=== PATIENT | female | born 1970 | race Caucasian/White ===

== ENCOUNTER → 2018-05-24 09:35 | Outpatient (CLI) | payer OTHER, SELFPAY | PROVIDERS: Family Provider Family Medicine Geriatric Medicine; PCP Family Medicine Geriatric Medicine; Referring Provider Family Medicine Geriatric Medicine; Visit Provider Family Medicine Geriatric Medicine | DX: R68.83 Chills (without fever) (principal) | CPT/HCPCS: 87633 ==

== ENCOUNTER 2018-07-07 21:47 | Emergency (ER) | payer OTHER, SELFPAY ==
[2018-07-07 21:48] VITALS: BP 188/107; PULSE 87; RESP 14; TEMP 36.8; O2SAT 97; BMI 33.8
[2018-07-07 22:18] VITALS: BP 195/104
[2018-07-07] MEDS: 0.9% Normal Saline 1,000 ML 999 ML IV (22:35)
[2018-07-07] MEDS: Ondansetron 4 MG/2 ML Vial IV (22:36)
[2018-07-07] MEDS: Ketorolac 30 MG/ML Syringe IV (22:36)
[2018-07-07 22:47] LABS: Absolute Lymphocyte Count 0.66 X10^3/ul (0.83-4.51); Absolute Neutrophil Count 3.7 X10^3/uL (2.0-7.7); Basophil# 0.01 X10^3/uL; Basophil% 0.2 % (0-1); Eosinophil# 0.01 X10^3/uL; Eosinophils% 0.2 % (0-5); Hematocrit 39.2 % (37-47); Hemoglobin 13.2 g/dl (12.0-15.0); Lymphocyte # 0.66 X10^3/ul (4.0); Lymphocyte % 13.5 % (19-41); Mean Corp Hgb Conc 33.7 g/gl (32-36); Mean Corpuscular Hgb 31.5 pg (27.0-32.0); Mean Corpuscular Volume 93.6 fL (81-99); Mean Platelet Vol. 10.4 fl (6.2-12.0); Monocyte# 0.53 X10^3/uL; Monocyte% 10.8 % (0-10); Neutrophil # 3.69 X10^3/uL (2.7-7.7); Neutrophil % 75.3 % (47-70); Platelet Count 155 K/mm3 (150-450); RBC Distribution Width CV 12.7 % (11.6-14.6); RBC Distribution Width SD 42.5 fl (35.1-43.9); Red Blood Count 4.19 M/mm3 (4.2-5.4); White Blood Count 4.9 K/mm3 (4.4-11.0)
[2018-07-07 22:48] LABS: POSITIVE COUNT NO; POSITIVE DIFFERENTIAL NO; POSITIVE MORPHOLOGY NO
--- NOTE | 2018-07-07 22:50 | ED.VISSUMM ---
- ER Visit Summary Date of Service: 07/07/18 Chief Complaint: Cough, vomiting, sinus pressure History of Present Illness: The patient is a 48 F who came home from work last night with a cough and body aches. She went straight to bed. She started vomiting around 10 PM last night. She continued to feel ill today and has noted significant sinus pressure. She reports a fever up to 102. She last took Tylenol about 5 hours prior to arrival. Past history significant for borderline hypertension. She has had prior cholecystectomy. Physical Examination: Blood pressure is 188/107, temperature 98.3, heart rate 87, respiratory rate 14, pulse ox 97% on room air. Patient is lying in a darkened room. She is in no acute distress. Head neck examination reveals TMs to be clear bilaterally. Posterior pharynx is normal. She has mild bilateral anterior cervical lymphadenopathy. Heart is regular rate and rhythm. Lungs are clear. Abdomen is soft and nontender. Test Results: Two-view chest x-ray shows no focal infiltrate. CBC was normal white count was 75% neutrophils. Chemistry studies significant for slightly low potassium at 3.2. Influenza swab is positive for flu A. Emergency Department Course and Treatment: Patient was given p.o. Sudafed, IV Toradol, Zofran, and fluids. Test results were discussed with patient and at bedside. She is given a dose of Tamiflu. Blood pressure did remain elevated throughout her ED stay. She is given a dose of labetalol and blood pressure is improved at this time. She is advised to monitor this at home and follow-up with her primary care physician. This may be secondary to her illness, but certainly needs close follow-up. Treatment Plan: [] Disposition: Discharge Impression: 1. Influenza A 2. Hypertension This note was generated with [employer] software. It may contain incorrect words, spelling, and punctuation that were not noted in review of the chart prior to signing ED Disposition - Plan for ED Patient: Chief Complaint: Cold Sx Referrals: Carlos Gayle Chi, MD [Primary Care Provider] -
--- NOTE | 2018-07-07 22:59 | ED.RN ---
lab called with positive lab results. Positive Flu A. Dr. Keenan made aware. no new orders at this time
[2018-07-07 23:00] LABS: Anion Gap 7 (5-15); BUN 11 mg/dL (7-18); BUN/Creat Ratio 12.1 RATIO (10-20); Calcium,Total 8.2 mg/dL (8.5-10.1); Chloride 107 mmol/L (98-107); Creatinine, Serum 0.91 mg/dL (0.55-1.02); EST Glomerular Filtration Rate 70 mL/min (>60); Est Glom Filt Rate - Afr Amer 84 mL/min (>60); Estimated Creatinine Clearance 59.15 ml/min; Glucose 111 mg/dL (74-106); Potassium 3.2 mmol/L (3.5-5.1); Sodium Level 140 mmol/L (136-145)
--- NOTE | 2018-07-07 23:00 | RAD_ITS ---
STUDY: X-RAY CHEST REASON FOR EXAM: Female, 48 years old. Cough, fever TECHNIQUE: Frontal and lateral views COMPARISON: February 16, 2016 FINDINGS: The lungs are clear and expanded. There is no demonstrated pleural abnormality. Normal size heart. Normal mediastinum and dashawn. Normal visualized pulmonary arteries. Normal visualized aortic arch and descending thoracic aorta. Normal visualized thoracic spine. Normal visualized ribs, clavicles, and shoulders. There is no demonstrated abnormality of the visualized soft tissue structures of the upper abdomen. RAD/Chest PA and Lateral IMPRESSION: Normal x-ray examination of the chest. Electronically Signed: Fredy See DO at 23:39 EST Tel [phone], Service support ,
[2018-07-07 23:22] VITALS: BP 198/98
[2018-07-07] MEDS: Oseltamivir Phosphate 75 MG Capsule PO (23:38)
[2018-07-07 23:46] VITALS: BP 160/82
--- NOTE | 2018-07-07 23:52 | ED.DEP ---
ED Disposition - Plan for ED Patient: Disposition: Home or Assisted Living Chief Complaint: Cold Sx Instructions: ED Flu Prescriptions: Oseltamivir Phosphate [Tamiflu] 75 mg PO BID #10 capsule Referrals: Carlos Gayle Chi, MD [Primary Care Provider] - 1 Week
[2018-07-08 00:01] VITALS: BP 160/82
== END 2018-07-08 00:02 | disposition home or self-care (01) ==
PROVIDERS: Emergency Provider Emergency Medicine; Family Provider Family Medicine Geriatric Medicine; PCP Family Medicine Geriatric Medicine
DX: J09.X2 Influenza due to identified novel influenza A virus with other respiratory manifestations (principal); I10 Essential (primary) hypertension; Z90.49 Acquired absence of other specified parts of digestive tract; Z87.891 Personal history of nicotine dependence
CPT/HCPCS: 71046; 80048; 85025; 87804; 96361; 96374; 96375; 99283; J7030; A4216; J2405

== ENCOUNTER → 2018-07-11 11:23 | Outpatient (CLI) | payer OTHER, SELFPAY ==
[2018-07-07 21:48] VITALS: BMI 33.8
--- NOTE | 2018-07-11 11:35 | RAD_ITS ---
STUDY: X-RAY CHEST REASON FOR EXAM: Female, 48 years old. Bronchitis TECHNIQUE: PA and lateral views of the chest. COMPARISON: 07/07/2018 FINDINGS: The lungs are clear and expanded. There is no demonstrated pleural abnormality. Normal size heart. Normal mediastinum and dashawn. Normal visualized pulmonary arteries. Normal visualized aortic arch and descending thoracic aorta. Normal visualized thoracic spine. Normal visualized ribs, clavicles, and shoulders. There is no demonstrated abnormality of the visualized soft tissue structures of the upper abdomen. RAD/Chest PA and Lateral IMPRESSION: No airspace consolidation. Stable exam. Electronically Signed: John Dennis MD at 13:56 EST , Service support ,
== END ==
PROVIDERS: Family Provider Family Medicine Geriatric Medicine; PCP Family Medicine Geriatric Medicine; Referring Provider Family Medicine Geriatric Medicine; Visit Provider Family Medicine Geriatric Medicine
DX: J40 Bronchitis, not specified as acute or chronic (principal)
CPT/HCPCS: 71046

== ENCOUNTER → 2018-08-30 08:52 | Outpatient (CLI) | payer OTHER, SELFPAY ==
[2018-08-30 09:21] LABS: Absolute Lymphocyte Count 1.92 X10^3/ul (0.83-4.51); Absolute Neutrophil Count 3.3 X10^3/uL (2.0-7.7); Basophil# 0.02 X10^3/uL; Basophil% 0.3 % (0-1); Eosinophils% 1.7 % (0-5); Hematocrit 41.9 % (37-47); Hemoglobin 14.1 g/dl (12.0-15.0); Lymphocyte # 1.92 X10^3/ul (4.0); Mean Corp Hgb Conc 33.7 g/gl (32-36); Mean Corpuscular Hgb 31.4 pg (27.0-32.0); Mean Corpuscular Volume 93.3 fL (81-99); Monocyte# 0.61 X10^3/uL; Monocyte% 10.2 % (0-10); Neutrophil # 3.33 X10^3/uL (2.7-7.7); Neutrophil % 55.5 % (47-70); POSITIVE COUNT NO; POSITIVE DIFFERENTIAL NO; POSITIVE MORPHOLOGY NO; Platelet Count 225 K/mm3 (150-450); RBC Distribution Width CV 13.2 % (11.6-14.6); RBC Distribution Width SD 44.9 fl (35.1-43.9); Red Blood Count 4.49 M/mm3 (4.2-5.4)
[2018-08-30 09:51] LABS: ALB/GLOB Ratio 1.1 RATIO (0.9-2.4); AST(SGOT) 17 U/L (15-37); Alanine Aminotransfer ALT/SGPT 30 U/L (13-56); Albumin, Serum 3.8 g/dL (3.2-5.0); Alkaline Phosphatase 118 U/L (45-117); Anion Gap 9 (5-15); BUN 15 mg/dL (7-18); BUN/Creat Ratio 14.4 RATIO (10-20); Calcium,Total 8.3 mg/dL (8.5-10.1); Chloride 104 mmol/L (98-107); Creatinine, Serum 1.04 mg/dL (0.55-1.02); EST Glomerular Filtration Rate 60 mL/min (>60); Est Glom Filt Rate - Afr Amer 72 mL/min (>60); Globulin 3.5 g/dL (2.2-4.2); Glucose 98 mg/dL (74-106); Magnesium 2.5 mg/dL (1.6-2.6); Phosphorus 3.4 mg/dL (2.5-4.9); Potassium 3.4 mmol/L (3.5-5.1); Protein, Total 7.3 g/dL (6.4-8.2); Sodium Level 142 mmol/L (136-145); Thyroid Stim Hormone (TSH) 6.52 uIU/mL (0.358-3.74)
== END ==
PROVIDERS: Family Provider Family Medicine Geriatric Medicine; PCP Family Medicine Geriatric Medicine; Referring Provider Family Medicine Geriatric Medicine; Visit Provider Family Medicine Geriatric Medicine
DX: I10 Essential (primary) hypertension (principal); R25.2 Cramp and spasm
CPT/HCPCS: 36415; 80053; 83735; 84100; 84443; 85025

== ENCOUNTER → 2018-09-08 13:16 | Outpatient (CLI) | payer OTHER, SELFPAY ==
[2018-09-08 14:06] LABS: Anion Gap 9 (5-15); BUN 15 mg/dL (7-18); BUN/Creat Ratio 13.8 RATIO (10-20); Calcium,Total 8.6 mg/dL (8.5-10.1); Chloride 105 mmol/L (98-107); Creatinine, Serum 1.09 mg/dL (0.55-1.02); EST Glomerular Filtration Rate 57 mL/min (>60); Est Glom Filt Rate - Afr Amer 69 mL/min (>60); Glucose 83 mg/dL (74-106); Potassium 3.7 mmol/L (3.5-5.1); Sodium Level 143 mmol/L (136-145)
== END ==
PROVIDERS: Family Provider Family Medicine Geriatric Medicine; PCP Family Medicine Geriatric Medicine; Referring Provider Family Medicine Geriatric Medicine; Visit Provider Family Medicine Geriatric Medicine
DX: E87.6 Hypokalemia (principal)
CPT/HCPCS: 36415; 80048

== ENCOUNTER → 2018-12-09 08:18 | Outpatient (CLI) | payer OTHER, SELFPAY ==
[2018-12-08 18:00] VITALS: BMI 36.6
--- NOTE | 2018-12-09 08:19 | RAD_ITS ---
STUDY: X-RAY - RIGHT SHOULDER REASON FOR EXAM: Female, 48 years old. Pain TECHNIQUE: 4 view(s) of the shoulder. COMPARISON: None. FINDINGS: Normal glenohumeral articulation. Normal acromioclavicular joint. Normal acromion. Normal humeral head and visualized proximal humerus. The soft tissue structures are unremarkable. Normal visualized pulmonary apex. RAD/Shoulder min 2 Views IMPRESSION: Normal x-ray examination of the shoulder. Electronically Signed: Alexis House MD at 11:55 EDT , Service support ,
--- NOTE | 2018-12-09 08:30 | RAD_ITS ---
STUDY: X-RAY - UNILATERAL RIBS ( RIGHT ) REASON FOR EXAM: Female, 48 years old. Chest and rib pain after a fall TECHNIQUE: 4 view(s) of the ribs. COMPARISON: None. FINDINGS: Normal visualized ribs without a demonstrated fracture. The visualized lung is clear and expanded. RAD/Ribs Unil 2V No CXR IMPRESSION: Normal x-ray examination of the ribs. Electronically Signed: Alexis House MD at 11:56 EDT , Service support ,
== END ==
PROVIDERS: Family Provider Family Medicine Geriatric Medicine; PCP Family Medicine Geriatric Medicine; Referring Provider Chiropractor; Visit Provider Chiropractor
DX: R07.81 Pleurodynia (principal); S46.911A Strain of unspecified muscle, fascia and tendon at shoulder and upper arm level, right arm, initial encounter
CPT/HCPCS: 71100; 73030

== ENCOUNTER 2018-12-22 01:49 | Emergency (ER) | payer OTHER, SELFPAY ==
[2018-12-15 18:14] VITALS: BMI 36.6
[2018-12-22 01:50] VITALS: BP 216/109; PULSE 86; RESP 18; TEMP 36.2; O2SAT 98; BMI 38.7
--- NOTE | 2018-12-22 02:18 | RAD_ITS ---
STUDY: X-RAY - RIGHT FOOT CLINICAL: Female, 48 years old. Fall. Right foot pain TECHNIQUE: 3 view(s) of the foot. COMPARISON: None. FINDINGS: Normal talus, calcaneus, and tarsal bones. Normal visualized subtalar, talonavicular, calcaneocuboid, tarsal and tarsometatarsal articulations. Normal metatarsi. Normal metatarsophalangeal joint of the great toe. Normal tibial and fibular sesamoid bones. Normal interphalangeal joint of the great toe. Normal phalanges of the great toe. Normal second through fifth metatarsophalangeal joints. Normal interphalangeal joints and phalanges of the lesser toes. The soft tissue structures are unremarkable. RAD/Foot min 3 Views IMPRESSION: Normal x-ray examination of the foot. Electronically Signed: Ian Lemus, at 3:48 EDT Tel , Service support ,
--- NOTE | 2018-12-22 02:18 | RAD_ITS ---
STUDY: X-RAY - LEFT FOOT CLINICAL: Female, 48 years old. Bilateral foot pain TECHNIQUE: 3 view(s) of the foot. COMPARISON: None. FINDINGS: Normal talus, calcaneus, and tarsal bones. Normal visualized subtalar, talonavicular, calcaneocuboid, tarsal and tarsometatarsal articulations. Normal metatarsi. Normal metatarsophalangeal joint of the great toe. Normal tibial and fibular sesamoid bones. Normal interphalangeal joint of the great toe. Normal phalanges of the great toe. Normal second through fifth metatarsophalangeal joints. Normal interphalangeal joints and phalanges of the lesser toes. The soft tissue structures are unremarkable. RAD/Foot min 3 Views IMPRESSION: Normal x-ray examination of the foot. Electronically Signed: Ian Lemus, at 3:51 EDT Tel , Service support ,
--- NOTE | 2018-12-22 02:20 | ED.DCSUM_ITS ---
History of Present Illness Chief Complaint: Lower Extremity Injury Informant: Patient Narrative: Patient presents with pain in her bilateral feet. Earlier this evening she was walking in a parking lot and tripped and injured both of the tops of her feet. It hurts to walk. She went home and took a gabapentin and Flexeril. She has this for intercostal neuritis. Comes in for further evaluation of her feet. Current severity is moderate. Worsened by walking and ambulating on it. No previous injury to her feet. - Past Medical History (1) Segmental and somatic dysfunction of cervical region Status: Acute (2) Segmental and somatic dysfunction of lumbar region Status: Acute (3) Segmental and somatic dysfunction of thoracic region Status: Acute Past Medical History - Allergies and Home Meds Allergies/Adverse Reactions: Allergies meperidine HCl [From Demerol] Allergy (Verified 12/22/18 01:52) Shortness of breath Primary Care Physician: Carlos Gayle Chi, MD [Primary Care Provider] - Prior records reviewed: Yes Surgical History: - - Reviewed Lives: Spouse/ Significant Other Smoking Status: Former smoker Alcohol: None Drugs: None Review of Systems General: Denies: Chills, Fever, Sweats Eyes: Denies: Visual changes - bilaterally, Diplopia ENT: Denies: Rhinorrhea, Sore throat Cardiovascular: Denies: Chest pain, Palpitations Respiratory: Denies: Dyspnea, Cough, Dyspnea on exertion Gastrointestinal: Denies: Abdominal pain, Nausea, Vomiting, Diarrhea, Melena, Hematochezia Genitourinary: Denies: Dysuria, Hematuria, Frequency Musculoskeletal: Reports: Extremity Pain. Denies: Back pain Skin: Denies: Rash, Wounds Neurological: Denies: Headache, Weakness, Numbness Physical Exam Vital Signs/Narrative: Vital Signs Temp Pulse Resp BP Pulse Ox 12/22/18 01:50 97.1 F L 86 18 216/109 H 98 General: Well nourished, Well developed, No Acute Distress Head: Normocephalic, Atraumatic Eyes: Perrl, EOMI ENT: Moist mucous membranes, No rhinorrhea Neck: Supple, Nontender Cardiovascular: Regular rate, Regular rhythm, No murmurs Respiratory: No distress, CTA bilaterally, Chest nontender Abdomen: Soft, Nontender, Nondistended, Normal bowel sounds Back: Nontender, Normal Inspection Extremities: Tenderness - Tenderness to the bilateral mid metatarsals of her feet. She has a small contusion to the right foot. She has mild soft tissue swelling on the left foot over the second third metatarsal. Mild decreased range of motion secondary to pain.. Negative for: Nontender, No edema Skin: Normal color, No rash Neurological: Alert, Oriented x3, Cranial nerves II-XII grossly intact, Normal Strength, Normal Sensation Psychological: Normal affect, Normal Mood Diagnostic/Tx/Re-eval - Medical Decision Making Patient given injection of morphine. Bilateral foot x-rays obtained. X-rays were negative. At this time I think the patient just sprained and bruised her feet. Given Nicolás wrap's crutches and postop shoes. Also given a dose of Zofran for the nausea that the morphine created. Will use Tylenol and ibuprofen as an outpatient. ED Disposition - Plan for ED Patient: Disposition: [facility] Diagnosis: Sprain of foot, left, Sprain of foot, right Instructions: ED Contusion Foot, ED Sprain Foot Referrals: Carlos Gayle Chi, MD [Primary Care Provider] -
[2018-12-22] MEDS: morphine 8 MG/ML Syringe IM (02:25)
[2018-12-22] MEDS: Ondansetron ODT 4 MG Tablet 8 MG PO (04:34)
[2018-12-22 04:40] VITALS: BP 171/92; PULSE 76; RESP 15; O2SAT 98
== END 2018-12-22 04:41 | disposition home or self-care (01) ==
PROVIDERS: Emergency Provider Emergency Medicine; Family Provider Family Medicine Geriatric Medicine; PCP Family Medicine Geriatric Medicine
DX: S93.601A Unspecified sprain of right foot, initial encounter (principal); S93.602A Unspecified sprain of left foot, initial encounter; W18.40XA Slipping, tripping and stumbling without falling, unspecified, initial encounter; Y93.01 Activity, walking, marching and hiking; Y92.481 Parking lot as the place of occurrence of the external cause; Y99.9 Unspecified external cause status; Z88.5 Allergy status to narcotic agent; Z87.891 Personal history of nicotine dependence
CPT/HCPCS: 73630; 99284

== ENCOUNTER → 2018-12-28 | Outpatient (CLI) | payer OTHER, SELFPAY ==
[2018-12-22 01:50] VITALS: BMI 38.7
--- NOTE | 2018-12-28 11:18 | CT_ITS ---
STUDY: CT BRAIN WITHOUT CONTRAST REASON FOR EXAM: Female, 48 years old. Closed head injury. RADIATION DOSAGE (If Supplied By Facility): CTDIvol = ( 44.99 ) mGy, DLP = ( 796.11 ) mGycm TECHNIQUE: Transaxial CT imaging of the brain was performed without administration of intravenous contrast material. Individualized dose optimization techniques were used for this CT. COMPARISON: No relevant priors. FINDINGS: Normal soft tissue structures. Normal calvarium. Normal size ventricles and extra-axial spaces for the patient's age. Normal white matter tracts of the cerebral hemispheres. Normal basal ganglia and thalami. Normal brainstem. Normal cerebellum. There is no intracranial hemorrhage. There are no findings of an acute ischemic infarction. Normal visualized paranasal sinuses. CT/Brain/Head without Contrast IMPRESSION: Normal unenhanced CT scan of the brain. Electronically Signed: Adolfo Pederson, at 11:41 EDT , Service support ,
--- NOTE | 2018-12-28 12:25 | RAD_ITS ---
STUDY: X-RAY - RIGHT KNEE REASON FOR EXAM: Female, 48 years old. Pain after fall TECHNIQUE: 4 view(s) of the knee. COMPARISON: None. FINDINGS: Normal visualized distal femur. Normal visualized proximal tibia and fibula. Normal proximal tibiofibular articulation. Normal medial femorotibial compartment. Normal lateral femorotibial compartment. Normal patellofemoral articulation. The soft tissue structures are unremarkable. RAD/Knee 4 or More Views IMPRESSION: Normal x-ray examination of the knee. Electronically Signed: Alexis House MD at 12:55 EDT , Service support ,
== END | disposition home or self-care (01) ==
PROVIDERS: Family Provider Family Medicine Geriatric Medicine; PCP Family Medicine Geriatric Medicine; Referring Provider Family Medicine Geriatric Medicine; Visit Provider Family Medicine Geriatric Medicine
DX: S09.90XA Unspecified injury of head, initial encounter (principal); M25.561 Pain in right knee
CPT/HCPCS: 70450; 73564

== ENCOUNTER → 2018-12-30 12:43 | Outpatient (CLI) | payer OTHER, SELFPAY ==
[2018-12-22 01:50] VITALS: BMI 38.7
--- NOTE | 2018-12-30 12:44 | MRI_ITS ---
STUDY: MRI RIGHT KNEE REASON FOR EXAM: Right knee injury from a fall 2 days ago. TECHNIQUE: Standardized fat and water weighted pulse sequences were obtained in all 3 orthogonal planes. COMPARISON: Radiographs 12/28/2018. FINDINGS: Normal medial meniscus. Normal hyaline cartilage of the medial femorotibial compartment. Normal medial femoral condyle and tibial plateau. Normal medial collateral ligamentous complex (MCL). Normal distal semimembranosus, gracilis and semitendinosus tendons. Normal lateral meniscus. There is a fracture of the lateral tibial plateau with maximal depression of 0.2 cm (proton-density coronal images 12-15) with a small overlying chondral fracture (T2 coronal image 13). There is a small bone contusion of the posterior aspect of the lateral femoral condyle (T2 sagittal images 5, 6). Normal proximal tibiofibular articulation. Normal lateral collateral (fibular) ligament. Normal popliteus tendon. Normal biceps femoris tendon. Normal anterior cruciate ligament (ACL). Normal posterior cruciate ligament (PCL). Normal congruent patellofemoral articulation. There is low-grade chondromalacia patellae (T2 axial image 13). Normal medial and lateral patellar retinaculum. Normal quadriceps tendon. Normal patellar tendon. Normal Hoffa's fat pad. There is a very small joint effusion with mild extravasation of fluid. There is edema in the anterior subcutis adipose space. The otherwise visualized osseous structures are unremarkable. MRI/Lower Ext Joint Only (Routine) IMPRESSION: Lateral tibial plateau fracture with small overlying chondral fracture. Small bone contusion of the lateral femoral condyle. Low-grade chondromalacia patellae. Very small joint effusion with mild extravasation of fluid. N.B. : The above information has been verbally conveyed by Oscar Williamson MD to Carlos Gayle MD, , on 12/30/2018 14:57:42 (ET). Electronically Signed: Oscar Williamson MD at 14:36 EDT Tel , Service support ,
== END ==
PROVIDERS: Family Provider Family Medicine Geriatric Medicine; PCP Family Medicine Geriatric Medicine; Referring Provider Orthopaedic Surgery; Visit Provider Orthopaedic Surgery
DX: S83.194A Other dislocation of right knee, initial encounter (principal)
CPT/HCPCS: 73721

== ENCOUNTER → 2019-01-05 14:29 | Outpatient (CLI) | payer OTHER, SELFPAY ==
[2019-01-05 14:25] VITALS: BMI 38.7
--- NOTE | 2019-01-05 14:30 | RAD_ITS ---
STUDY: X-RAY - LEFT KNEE REASON FOR EXAM: Left knee pain. TECHNIQUE: 4 view(s) of the knee. COMPARISON: None. FINDINGS: Normal visualized distal femur. Normal visualized proximal tibia and fibula. Normal proximal tibiofibular articulation. Normal medial femorotibial compartment. Normal lateral femorotibial compartment. Normal patellofemoral articulation. The soft tissue structures are unremarkable. RAD/Knee 4 or More Views IMPRESSION: Normal x-ray examination of the left knee. Electronically Signed: Oscar Williamson MD at 16:00 EDT Tel , Service support ,
== END ==
PROVIDERS: Family Provider Family Medicine Geriatric Medicine; PCP Family Medicine Geriatric Medicine; Referring Provider Orthopaedic Surgery; Visit Provider Orthopaedic Surgery
DX: M25.562 Pain in left knee (principal); T14.90XA Injury, unspecified, initial encounter
CPT/HCPCS: 73564

== ENCOUNTER → 2019-01-05 15:28 | Outpatient (CLI) | payer OTHER, SELFPAY ==
[2019-01-05 14:25] VITALS: BMI 38.7
--- NOTE | 2019-01-05 15:30 | VDLE_ITS ---
Reason For Study: Swelling RIGHT LEFT GSV is normal. CFV is compressible, spontaneous, phasic, CFV is compressible, spontaneous, phasic, competent, and demonstrates normal competent and demonstrates normal augmentation. augmentation. FV is compressible, spontaneous, phasic, competent and demonstrates normal augmentation. POP V is compressible, spontaneous, phasic, competent and demonstrates normal augmentation. T/P Trunk is compressible. RT PerV is compressible. Acute deep vein thrombosis is noted in the right posterior tibial vein. Acute deep vein thrombosis is noted in the right gastroc vein. Procedure Exam performed in department. A preliminary report was called and/or faxed to [facility]. Interpretation Summary Right greater saphenous vein appears patent and compressible segmentally. Acute deep venous thrombosis right posterior tibial vein Acute deep venous thrombosis right gastrocnemius vein. Normal flow patterns left common femoral vein Ordering Physician: Mariaelena Vega Referring Physician: Carlos Gayle Chi Performed By: Angelica Clifton RVT
== END ==
PROVIDERS: Family Provider Family Medicine Geriatric Medicine; PCP Family Medicine Geriatric Medicine; Referring Provider Orthopaedic Surgery; Visit Provider Orthopaedic Surgery
DX: M79.89 Other specified soft tissue disorders (principal)
CPT/HCPCS: 93971

== ENCOUNTER → 2019-01-13 16:57 | Outpatient (CLI) | payer OTHER, SELFPAY ==
[2019-01-05 14:25] VITALS: BMI 38.7
--- NOTE | 2019-01-13 17:01 | MRI_ITS ---
STUDY: MRI LEFT KNEE REASON FOR EXAM: Female, 48 years old. Left knee pain and swelling. TECHNIQUE: Standardized fat and water weighted pulse sequences were obtained in all 3 orthogonal planes. COMPARISON: None. FINDINGS: Normal medial meniscus. Normal hyaline cartilage of the medial femorotibial compartment. Normal medial femoral condyle and tibial plateau. Normal medial collateral ligamentous complex (MCL). Normal distal semimembranosus, gracilis and semitendinosus tendons. Normal lateral meniscus. Normal hyaline cartilage of the lateral femorotibial compartment. There is extensive marrow edema in the posterolateral tibial plateau, extending to the midline and into the proximal femoral shaft. Question minimal, nondisplaced posterior cortical fracture. There is a 0.8 cm osteochondral lesion posteriorly. No free fragment. Normal proximal tibiofibular articulation. Normal lateral collateral (fibular) ligament. Normal popliteus tendon. Normal biceps femoris tendon. Normal anterior cruciate ligament (ACL). Normal posterior cruciate ligament (PCL). Mild lateral patellar subluxation. Normal hyaline cartilage of the patellofemoral compartment. Normal medial and lateral patellar retinaculum. Normal quadriceps tendon. Normal patellar tendon. Normal Hoffa's fat pad. Moderate joint effusion with gastrocnemius-semimembranosus bursal prolapse. There is a 1.8 x 1.7 x 1.4 cm heterogeneously hyperintense lesion within or adjacent to the bursal prolapse. Ganglion cyst is questioned. Mild anterior soft tissue edema. The otherwise visualized osseous structures are unremarkable. MRI/Lower Ext Joint Only (Routine) IMPRESSION: 1. Lateral tibial bone contusion with a small osteochondral fracture or defect and possible posterior cortical fracture. 2. Ganglion cyst is favored over synovial proliferation within a gastrocnemius-semimembranosus bursal effusion/prolapse. 3. Joint effusion. 4. Mild lateral patellar subluxation. Electronically Signed: Eloise Thomas MD at 18:50 EDT Tel , Service support ,
== END ==
PROVIDERS: Family Provider Family Medicine Geriatric Medicine; PCP Family Medicine Geriatric Medicine; Referring Provider Orthopaedic Surgery; Visit Provider Orthopaedic Surgery
DX: S89.92XA Unspecified injury of left lower leg, initial encounter (principal); M25.462 Effusion, left knee
CPT/HCPCS: 73721

== ENCOUNTER → 2019-03-20 11:47 | Outpatient (CLI) | payer OTHER, SELFPAY ==
[2019-03-03 09:13] VITALS: BMI 38.7
== END ==
PROVIDERS: Family Provider Family Medicine Geriatric Medicine; PCP Family Medicine Geriatric Medicine; Referring Provider Family Medicine Geriatric Medicine; Visit Provider Family Medicine Geriatric Medicine
DX: R68.83 Chills (without fever) (principal)
CPT/HCPCS: 87633

== ENCOUNTER 2019-03-31 10:00 | Outpatient (RCR) | payer OTHER, SELFPAY ==
[2019-03-03 09:13] VITALS: BMI 38.7
--- NOTE | 2019-03-10 12:52 | HP.PTEVAL_ITS ---
Patient's Visit Information PIERO BROWN is a 48 year old F referred to Physical Therapy by Mariaelena Vega DO with a diagnosis of Right Lat tib fx, left knee injury. Date of Evaluation: 03/10/19 Physical Therapist: Jacqueline Merino DPT - Visit Plan Frequency: 2-3x /Week Duration: 3 Weeks Plan: focus on le and core strength/stabilization- no preacuations - Subjective Findings: December she fractured both tibias- fell down a hill. Went the next day to Dr. Gayle's office and he had and MRI done on the right immediatly and then they did the left. Had a blood clot in the right and they cleared her to come to PT. Dr. Vega has cleared her to be weight bearing as tolerated. She can't walk without shoes and wears a brace on the right. She wants her to wean out of the brace. Off until about noon then puts it back on. She has a rollerator around the house when she is tired and sore. But most of the day she does not use an AD. Pain is located in the anterior knee radiating to the ankles and feet. Describes the pain as occasionally sharp- most of the time she is dull and achy. Right is worse than left Worst: 5/10 Agg: twisting, being up on them. Best: 0/10 Eases: sit down. Takes about 15 min to return to normal pain. Fully I prior to accident. Work for [employer]- stands most of the day. Is not currently working RTW date: Apr 03. Pain does not wake her up from sleeping unless the knees bump together- side sleeper. No N/T in the LE. Plantar fascitis, chronic ankle roller depending on her shoes. PMHx/Meds: no change since saw Dr. Romero - Objective Posture: FH.RS- can correct but does not maintain. Gait: antlagic- decreased stance on right LE with poor heel/toe pattern- no AD but does not walk distances- came to PT in w/c today. HR/TR: able with UE A- diminshed by 50% each due to fear. SLS: ws but unable to sls. Sensation: WNL. ROM: Right Knee: 0-95 degrees Left Knee: 0-115 degrees. Strength: Ankle: 4+/5, knee: right: 4-/5 left: 4+/5, Hip: 4-/5 throughout Core: poor. Significant fear with movement - Goals Goal 1:: Patient will be I with HEP and progression Goal Time Frame: 4-6 Weeks Goal 2:: Patient will ambulate >300 feet with no AD and a normalized gait pattern Goal Time Frame: 4-6 Weeks Goal 3:: Patient will demo 0-120 degrees of ROm in bilateral knees Goal Time Frame: 4-6 Weeks Goal 4:: Patient will return to all normal ADL's painfree Goal Time Frame: 4-6 Weeks - Rehabilitation Potential Physical Therapy Diagnosis: Patient presents with hypomobility- she has de creased ROM, strength and muscular endurnace leading to abnormal gait and increased painwith ADL;s Rehabilitation Potential: Good - Anticipated Interventions Patient/Client Instruction: Educate patient on: Benefits of Fitness Program Therapeutic Exercise to Include: Strength training, Endurance training, Balance training, Agility training, Body mechanics, Postural training, Flexibilty training, Gait and locomotor training, Passive ROM, Active ROM, Dynamic Lumbar Stabilization For the Purpose of:: To improve muscle performance and motor function Cryotherapy (ice pack, ice massage): Yes Thermo therapy (hot pack): Yes Thank you for the opportunity to evaluate your patient. For Medicare and Medicare HMO plans, please review the plan of care and approve it. It will need to be FAXED BACK to us at [phone] for Medicare purposes. For Medicare only, by signing this I certify the plan of care. Please let me know if there are questions or concerns regarding this plan of care. Physician Signature: Date:
--- NOTE | 2019-03-31 11:30 | HP.PTDCSUM ---
HP - PT D/C Summary It has been my pleasure to treat PIERO BROWN under orders from Mariaelena Vega DO, for the diagnosis of Right Lat tib fx, left knee injury for a total of 8 visit(s). Discharge Date: Please see the following information for a summary of their discharge status. - Subjective Subjective: Pt. reports feeling fantastic. No difficulties performing any activities besides prolonged standing & running. Would like to cont. HEP on her own at [facility]. - Overall Improvement % Improvement: 70 - Objective Objective/Function: Posture: FH.RS- can correct but does not maintain. Gait: no deviations noted. Stairs: Reciprocal pattern. No UE assist. HR/TR: WFL. SLS: R/L SLS 15 seconds (some fear w/ intitiating w/out UE support). Sensation: WNL. ROM: WFL. Strength: Ankle: 5/5, knee: right: 5/5 left: 5/5, Hip: 5/5 throughout Core: Fair - Goals Goal 1:: Patient will be I with HEP and progression Goal Progress: Goal Met Goal 2:: Patient will ambulate >300 feet with no AD and a normalized gait pattern Goal Progress: Goal Met Goal 3:: Patient will demo 0-120 degrees of ROm in bilateral knees Goal Progress: Goal Met Goal 4:: Patient will return to all normal ADL's painfree Goal Progress: Goal Met - Plan Plan: 03/31/19 - D/C, instructed to continue HEP on own & return if concerns. - D/C Information If there are questions or concerns regarding this patient's physical therapy, please feel free to call me at [phone]. Thank you for the referral of this patient. Sincerely, MISA GriffithsT
== END 2019-03-31 19:00 | disposition home or self-care (01) ==
LOC: PT 10:00
PROVIDERS: Family Provider Family Medicine Geriatric Medicine; PCP Family Medicine Geriatric Medicine; Referring Provider Orthopaedic Surgery; Visit Provider Orthopaedic Surgery
DX: S82.121D Displaced fracture of lateral condyle of right tibia, subsequent encounter for closed fracture with routine healing (principal); S89.92XD Unspecified injury of left lower leg, subsequent encounter
CPT/HCPCS: 97110; 97161; 97164

== ENCOUNTER → 2019-07-18 11:23 | Outpatient (CLI) | payer OTHER, SELFPAY ==
[2019-05-11 08:13] VITALS: BMI 36.9
[2019-07-18 11:43] LABS: Absolute Lymphocyte Count 1.95 X10^3/uL (0.83-4.51); Basophil# 0.03 X10^3/uL; Basophil% 0.5 % (0-1); Eosinophil# 0.07 X10^3/uL; Eosinophils% 1.1 % (0-5); Hematocrit 40.6 % (37-47); Hemoglobin 13.6 g/dL (12.0-15.0); Lymphocyte # 1.95 X10^3/ul (4.0); Lymphocyte % 29.3 % (19-41); Mean Corp Hgb Conc 33.5 g/dL (32-36); Mean Corpuscular Hgb 31.1 pg (27.0-32.0); Mean Corpuscular Volume 92.9 fL (81-99); Mean Platelet Vol. 9.7 fl (6.2-12.0); Monocyte# 0.58 X10^3/uL; Monocyte% 8.7 % (0-10); NRBC Flagged by Analyzer 0 % (0-5); Neutrophil # 3.99 X10^3/uL (2.7-7.7); Neutrophil % 59.9 % (47-70); Platelet Count 257 K/mm3 (150-450); RBC Distribution Width CV 13.2 % (11.6-14.6); RBC Distribution Width SD 44.9 fl (35.1-43.9); Red Blood Count 4.37 M/mm3 (4.2-5.4); White Blood Count 6.7 K/mm3 (4.4-11.0)
[2019-07-18 12:13] LABS: ALB/GLOB Ratio 1.2 RATIO (0.9-2.4); AST(SGOT) 21 U/L (15-37); Alanine Aminotransfer ALT/SGPT 41 U/L (13-56); Albumin, Serum 3.9 g/dL (3.2-5.0); Alkaline Phosphatase 87 U/L (45-117); Anion Gap 5 (5-15); BUN 17 mg/dL (7-18); BUN/Creat Ratio 16.2 RATIO (10-20); Chloride 107 mmol/L (98-107); Cholesterol 251 mg/dL (200); Creatinine, Serum 1.05 mg/dL (0.55-1.02); EST Glomerular Filtration Rate 59 mL/min (>60); Est Glom Filt Rate - Afr Amer 71 mL/min (>60); Globulin 3.2 g/dL (2.2-4.2); Glucose 102 mg/dL (74-106); High Density Lipoprotein 52 mg/dL; Potassium 3.4 mmol/L (3.5-5.1); Protein, Total 7.1 g/dL (6.4-8.2); Sodium Level 141 mmol/L (136-145); Thyroid Stim Hormone (TSH) 4.38 uIU/mL (0.358-3.74); Triglycerides 118 mg/dL; Very Low Density Lipoprotein 24 mg/dL (5-40)
== END ==
PROVIDERS: Family Provider Family Medicine Geriatric Medicine; PCP Family Medicine Geriatric Medicine; Referring Provider Family Medicine Geriatric Medicine; Visit Provider Family Medicine Geriatric Medicine
DX: I10 Essential (primary) hypertension (principal); E78.5 Hyperlipidemia, unspecified
CPT/HCPCS: 36415; 80053; 80061; 84443; 85025

== ENCOUNTER → 2019-07-21 13:17 | Outpatient (CLI) | payer OTHER, SELFPAY ==
[2019-05-11 08:13] VITALS: BMI 36.9
--- NOTE | 2019-07-21 13:20 | BI_ITS ---
MAMMOGRAPHY - BILATERAL SCREENING REASON FOR EXAM: Female, 49 years old. Routine annual screening examination. PERTINENT HISTORY: Non-contributory. History of bilateral breast reduction surgery. TECHNIQUE: Digital bilateral breast inder (3D mammographic acquisition) in the CC and MLO projections. 2-D mediolateral oblique (MLO) and craniocaudad (CC) views of both breasts were obtained. CAD: Full Field Digital Mammography with Computer Added Detection was performed. COMPARISON: No comparison mammograms available at this time. If any prior films become available, an addendum to this report can be generated. FINDINGS: Breast Composition: There are scattered areas of fibroglandular density. There are no dominant masses or suspicious calcifications. No other significant abnormalities are identified. BI/SCREEN MAMM (CAD) W/INDER BILAT IMPRESSION: Negative screening mammogram. Yearly followup mammogram recommended. (A) ASSESSMENT CATEGORY: BIRADS Category 1: Negative. A letter regarding these results will be sent to the patient by the facility within 30 days. Approximately 10% of breast cancers are not detected by mammography. A normal mammogram should not delay biopsy of a clinically suspicious abnormality. [id number] Electronically Signed: Adolfo Pederson, at 14:18 EST , Service support ,
== END ==
PROVIDERS: Family Provider Family Medicine Geriatric Medicine; PCP Family Medicine Geriatric Medicine; Referring Provider Family Medicine Geriatric Medicine; Visit Provider Family Medicine Geriatric Medicine
DX: Z12.31 Encounter for screening mammogram for malignant neoplasm of breast (principal)
CPT/HCPCS: 77063; 77067

== ENCOUNTER 2019-09-08 08:54 | Outpatient (RCR) | payer OTHER, SELFPAY ==
[2019-05-11 08:13] VITALS: BMI 36.9
[2019-08-29 09:00] VITALS: BMI 36.9
--- NOTE | 2019-09-12 09:45 | MASS.EVAL ---
Massage Therapy Evaluation: Initial Evaluation Date: 09/08/2019 SUBJECTIVE: Rasta is a 49 year old female who was referred to the [facility] for a massotherapy evaluation by Dr. Gayle with the diagnosis of muscle pain in neck and low back pain. She presents today with the symptoms of pain, stiffness and tension in the neck, mid back, low back and hips. Rasta reports having a past medical history of chronic neck pain and occasional low back pain. She reports that she is being seen by a chiropractor to help decrease her pain in her left hip. OBJECTIVE: Upon observation Rasta has some posture issues with her head and shoulders forward from the neutral position in sitting and standing. After examination and palpation, I found Rasta to have high muscle tension with tenderness and myofascial restrictions in her sub occipitals, levator scapulae, trapezius, rhomboids, scalenes, and thoracic paraspinals. Her left side is worse compared to the right side. Her QL?s, lumbar paraspinals, piriformis, glute medius and minimus all were very tight with fascial restrictions, tender points and trigger points. The first treatment consisted of a one hour massage to her upper body and feet, with myofascial release, muscle stripping, trigger point compression techniques, and cervical manual traction. ASSESSMENT: I feel that Rasta is a good candidate for massotherapy at this time. She had a favorable response to the first treatment with reduction in her muscle aches, pain and tension. She also had improvement in her cervical flexibility and low back flexibility. PLAN: The plan of care was reviewed with the patient. The patient is to be seen on an as needed basis for a total of ten sessions with the recommendation of once every month for a one hour treatment.
--- NOTE | 2020-06-19 17:12 | MASS.DISCH ---
Massage Therapy Discharge Summary: Discharge Date: 06/19/2020 Rasta was seen for a massotherapy evaluation on 09/08/2019 with the diagnosis of neck and low back pain. She was treated with one sessions of massage therapy. At this time this patient is being discharged from our care at [facility] facility.
== END 2019-09-08 19:00 | disposition home or self-care (01) ==
LOC: MASS 08:54
PROVIDERS: Family Provider Family Medicine Geriatric Medicine; PCP Family Medicine Geriatric Medicine; Referring Provider Family Medicine Geriatric Medicine; Visit Provider Family Medicine Geriatric Medicine
DX: M54.5 Low back pain (principal)
CPT/HCPCS: 97124

== ENCOUNTER → 2019-09-12 06:33 | Outpatient (CLI) | payer OTHER, SELFPAY ==
[2019-08-29 09:00] VITALS: BMI 36.9
--- NOTE | 2019-09-12 06:34 | MRI_ITS ---
STUDY: MRI RIGHT KNEE REASON FOR EXAM: Lateral knee pain. TECHNIQUE: Standardized fat and water weighted pulse sequences were obtained in all 3 orthogonal planes. COMPARISON: MRI images 12/30/2018 and radiographs 12/28/2018. FINDINGS: Normal medial meniscus. Normal hyaline cartilage of the medial femorotibial compartment. Normal medial femoral condyle and tibial plateau. Normal medial collateral ligamentous complex (MCL). Normal distal semimembranosus, gracilis and semitendinosus tendons. Normal lateral meniscus. Normal hyaline cartilage of the lateral femorotibial compartment. There is mild chronic healed fracture deformity of the lateral tibial plateau (proton density coronal images 15-17). Normal proximal tibiofibular articulation. Normal lateral collateral (fibular) ligament. Normal popliteus tendon. Normal biceps femoris tendon. Normal anterior cruciate ligament (ACL). Normal posterior cruciate ligament (PCL). Normal congruent patellofemoral articulation. There is low-grade chondromalacia patellae (T2 axial image 10). Normal medial and lateral patellar retinaculum. Normal visualized quadriceps tendon. Normal patellar tendon. Normal Hoffa''s fat pad. There is no joint effusion. There is a thin medial patellar plica. There is mild edema in the anterior subcutis adipose space. There is a minimal popliteal cyst (T2 sagittal image 18). The otherwise visualized osseous structures are unremarkable. MRI/Lower Ext Joint Only (Routine) IMPRESSION: Low-grade chondromalacia patellae. Mild chronic healed fracture deformity of the lateral tibial plateau. No demonstrated lateral meniscal tear. Electronically Signed: Oscar Williamson MD at 8:38 EST Tel , Service support ,
== END ==
PROVIDERS: PCP Family Medicine Geriatric Medicine; Referring Provider Orthopaedic Surgery; Visit Provider Orthopaedic Surgery
DX: S83.281A Other tear of lateral meniscus, current injury, right knee, initial encounter (principal)
CPT/HCPCS: 73721

== ENCOUNTER → 2020-05-15 10:14 | Outpatient (CLI) | payer OTHER, SELFPAY ==
[2020-01-11 17:33] VITALS: BMI 33.8
--- NOTE | 2020-05-15 10:19 | RAD_ITS ---
STUDY: X-RAY - LEFT HAND REASON FOR EXAM: Female, 50 years old. Injury 3 months ago, continued pain and bump 3rd mcp area TECHNIQUE: 3 view(s) of the hand. COMPARISON: Comparison is made with prior study dated 06/08/2016. FINDINGS: Normal radiocarpal articulation. Normal distal radioulnar joint. Normal visualized carpal bones. Normal carpal articulations Normal carpometacarpal articulation of the thumb. Normal second through fifth carpometacarpal joints. Normal metacarpi. Normal metacarpophalangeal joint of the thumb. Normal interphalangeal joint of the thumb. Normal proximal and distal phalanges of the thumb. Normal metacarpophalangeal joints of the second through fifth fingers. Normal proximal and distal interphalangeal joints of the second through fifth fingers. Normal phalanges of the second through fifth fingers. The soft tissue structures are unremarkable. RAD/Hand Min 3 Views IMPRESSION: Normal x-ray examination of the hand. Electronically Signed: Adolfo Pederson, at 14:39 EST , Service support ,
== END ==
PROVIDERS: PCP Family Medicine Geriatric Medicine; Referring Provider Family Medicine Geriatric Medicine; Visit Provider Family Medicine Geriatric Medicine
DX: M79.609 Pain in unspecified limb (principal)
CPT/HCPCS: 73130

== ENCOUNTER → 2020-08-29 09:58 | Outpatient (CLI) | payer OTHER, SELFPAY ==
--- NOTE | 2020-08-29 10:04 | RAD_ITS ---
STUDY: X-RAY CHEST REASON FOR EXAM: Female, 50 years old. Congestion 1 day -- positive rhinovirus mon day TECHNIQUE: PA and lateral views of the chest. COMPARISON: None. FINDINGS: The lungs are clear and expanded. There is no demonstrated pleural abnormality. Normal size heart. Normal mediastinum and dashawn. Normal visualized pulmonary arteries. There is atherosclerotic tortuosity of the aortic arch and descending thoracic aorta. There is demineralization of the osseous structures. Normal visualized ribs, clavicles, and shoulders. There is no demonstrated abnormality of the visualized soft tissue structures of the upper abdomen. RAD/Chest PA and Lateral IMPRESSION: No acute abnormality is seen. Electronically Signed: Adolfo Pederson MD at 10:48 EST , Service support ,
== END ==
PROVIDERS: PCP Family Medicine Geriatric Medicine; Referring Provider Family Medicine Geriatric Medicine; Visit Provider Family Medicine Geriatric Medicine
DX: R07.89 Other chest pain (principal)
CPT/HCPCS: 71046

== ENCOUNTER → 2020-08-29 10:55 | Outpatient (CLI) | payer OTHER, SELFPAY ==
[2020-08-29 11:14] LABS: Absolute Lymphocyte Count 2.79 X10^3/uL (0.83-4.51); Absolute Neutrophil Count 6.8 X10^3/uL (2.0-7.7); Basophil# 0.07 X10^3/uL; Basophil% 0.7 % (0-1); Eosinophil# 0.07 X10^3/uL; Eosinophils% 0.7 % (0-5); Hematocrit 44.1 % (37-47); Hemoglobin 14.8 g/dL (12.0-15.0); Lymphocyte # 2.79 X10^3/ul (4.0); Mean Corp Hgb Conc 33.6 g/dL (32-36); Mean Corpuscular Hgb 31.2 pg (27.0-32.0); Mean Corpuscular Volume 92.8 fL (81-99); Mean Platelet Vol. 9.7 fl (6.2-12.0); Monocyte# 0.84 X10^3/uL; Monocyte% 7.8 % (0-10); NRBC Flagged by Analyzer 0 % (0-5); Neutrophil # 6.81 X10^3/uL (2.7-7.7); Neutrophil % 63.2 % (47-70); Platelet Count 271 K/mm3 (150-450); RBC Distribution Width CV 12.8 % (11.6-14.6); RBC Distribution Width SD 43.8 fl (35.1-43.9); Red Blood Count 4.75 M/mm3 (4.2-5.4); White Blood Count 10.8 K/mm3 (4.4-11.0)
[2020-08-29 11:30] LABS: Anion Gap 3 (5-15); BUN 15 mg/dL (7-18); Calcium,Total 9.2 mg/dL (8.5-10.1); Chloride 106 mmol/L (98-107); Creatinine, Serum 1.15 mg/dL (0.55-1.02); EST Glomerular Filtration Rate 53 mL/min (>60); Est Glom Filt Rate - Afr Amer 64 mL/min (>60); Glucose 99 mg/dL (74-106); Potassium 3.7 mmol/L (3.5-5.1); Sodium Level 140 mmol/L (136-145)
== END ==
PROVIDERS: PCP Family Medicine Geriatric Medicine; Visit Provider Family Medicine Geriatric Medicine
DX: R05 Cough (principal)
CPT/HCPCS: 36415; 80048; 85025

== ENCOUNTER → 2020-08-30 09:22 | Outpatient (CLI) | payer OTHER, SELFPAY | PROVIDERS: PCP Family Medicine Geriatric Medicine; Visit Provider Family Medicine Geriatric Medicine | DX: R69 Illness, unspecified (principal) | CPT/HCPCS: 87070; 87077; 87205 ==

== ENCOUNTER → 2020-10-01 12:32 | Outpatient (CLI) | payer OTHER, SELFPAY ==
[2020-10-01 12:41] LABS: Absolute Lymphocyte Count 1.93 X10^3/uL (0.83-4.51); Absolute Neutrophil Count 3.9 X10^3/uL (2.0-7.7); Basophil# 0.03 X10^3/uL; Basophil% 0.5 % (0-1); Eosinophil# 0.05 X10^3/uL; Eosinophils% 0.8 % (0-5); Hematocrit 43.7 % (37-47); Hemoglobin 14.5 g/dL (12.0-15.0); Lymphocyte # 1.93 X10^3/ul (4.0); Lymphocyte % 29.8 % (19-41); Mean Corp Hgb Conc 33.2 g/dL (32-36); Mean Corpuscular Hgb 31.9 pg (27.0-32.0); Monocyte# 0.53 X10^3/uL; Monocyte% 8.2 % (0-10); NRBC Flagged by Analyzer 0 % (0-5); Neutrophil # 3.91 X10^3/uL (2.7-7.7); Neutrophil % 60.2 % (47-70); Platelet Count 262 K/mm3 (150-450); RBC Distribution Width CV 13.1 % (11.6-14.6); RBC Distribution Width SD 46.6 fl (35.1-43.9); Red Blood Count 4.55 M/mm3 (4.2-5.4); White Blood Count 6.5 K/mm3 (4.4-11.0)
[2020-10-01 13:12] LABS: Vitamin D,25 Hydroxy 23.5 ng/mL
[2020-10-01 13:19] LABS: ALB/GLOB Ratio 1.1 RATIO (0.9-2.4); AST(SGOT) 18 U/L (15-37); Alanine Aminotransfer ALT/SGPT 37 U/L (13-56); Albumin, Serum 3.9 g/dL (3.2-5.0); Alkaline Phosphatase 103 U/L (45-117); Anion Gap 4 (5-15); BUN 12 mg/dL (7-18); BUN/Creat Ratio 12.9 RATIO (10-20); Calcium,Total 8.9 mg/dL (8.5-10.1); Chloride 103 mmol/L (98-107); Creatinine, Serum 0.93 mg/dL (0.55-1.02); EST Glomerular Filtration Rate 67 mL/min (>60); Est Glom Filt Rate - Afr Amer 81 mL/min (>60); Globulin 3.4 g/dL (2.2-4.2); Glucose 91 mg/dL (74-106); Potassium 3.6 mmol/L (3.5-5.1); Protein, Total 7.3 g/dL (6.4-8.2); Sodium Level 141 mmol/L (136-145); Thyroid Stim Hormone (TSH) 3.57 uIU/mL (0.358-3.74)
== END ==
PROVIDERS: PCP Family Medicine Geriatric Medicine; Visit Provider Family Medicine Geriatric Medicine
DX: E55.9 Vitamin D deficiency, unspecified (principal); I10 Essential (primary) hypertension
CPT/HCPCS: 36415; 80053; 82306; 84443; 85025

== ENCOUNTER 2021-03-11 12:32 | Outpatient (CLI) | payer OTHER, SELFPAY ==
[2021-03-11] MEDS: 0.9% Saline Lock 10 ML Syringe IV (12:52)
[2021-03-11 12:58] VITALS: BP 179/107; PULSE 73; RESP 20; TEMP 37.1; O2SAT 98; BMI 32.9
[2021-03-11 13:21] VITALS: BP 186/108
[2021-03-11 13:34] VITALS: BP 195/111; PULSE 66; RESP 18; TEMP 36.6; O2SAT 97
[2021-03-11 14:24] VITALS: BP 197/100; PULSE 66; RESP 18; TEMP 36.7; O2SAT 98
== END 2021-03-11 14:40 | disposition home or self-care (01) ==
LOC: ICUOUT 12:32 → MS2 12:33
PROVIDERS: PCP Family Medicine Geriatric Medicine; Referring Provider Nurse Practitioner Acute Care; Visit Provider Nurse Practitioner Acute Care
DX: Z23 Encounter for immunization (principal); U07.1 COVID-19
CPT/HCPCS: J7050; M0243; A4216; Q0244

== ENCOUNTER → 2021-05-23 12:52 | Outpatient (CLI) | payer OTHER, SELFPAY | PROVIDERS: PCP Family Medicine Geriatric Medicine; Referring Provider Family Medicine Geriatric Medicine; Visit Provider Family Medicine Geriatric Medicine | DX: R19.7 Diarrhea, unspecified (principal) | CPT/HCPCS: 82274; 83630; 87177; 87209; 87493; 87506 ==

== ENCOUNTER 2021-06-08 13:31 | Emergency (ER) | payer OTHER, SELFPAY ==
[2021-06-08 13:32] VITALS: BP 185/111; PULSE 89; RESP 16; TEMP 36.8; O2SAT 97; BMI 36.2
--- NOTE | 2021-06-08 13:46 | EX.ED.DYSGE1 ---
HPI History of Present Illness Chief Complaint: Cellulitis Informant: patient Onset/Context/Timing Onset: Days (several) Context: Gradual Onset Timing: Continuous Quality: very sore Location: right neck and into right posterior scalp Current Severity: Moderate Maximum Severity: Moderate Worsened by: palpation Relieved by: leaving alone Associated Symptoms Associated Symptoms: itching on face in front of R ear Narrative Narrative: Patient has had several days of redness and soreness in her right neck going up to the scalp posterior to the ear, she denies an obvious cause. She has had no contact with angelo or possible ticks lately. 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 She denies any fevers or chills or systemic symptoms. She states she is afraid it is a spider bite but she knows of no spiders that were on her or other obvious insects. No systemic symptoms. [facility] Medical History (Updated 06/08/21 @ 13:[address] Randall Langford MD) Bilateral headaches GERD (gastroesophageal reflux disease) Hormone deficiency Hypertension Hyperthyroidism Home Medications baclofen mg PO 03/11/21 [History Last Taken Unknown] citalopram [Celexa] mg PO DAILY 03/11/21 [History Last Taken Unknown] levothyroxine 100 mcg PO DAILY 03/11/21 [History Last Taken Unknown] lisinopril-hydrochlorothiazide 1 tab PO DAILY 03/11/21 [History Last Taken Unknown] naproxen 500 mg PO BID PRN 03/11/21 [History Last Taken Unknown] pantoprazole 40 mg PO DAILY 03/11/21 [History Last Taken Unknown] cephalexin 500 mg PO Q6 #40 capsule 06/08/21 [Rx Last Taken Unknown] Allergy/AdvReac Type Severity Reaction Status Date / Time meperidine HCl [From Demerol] Allergy Shortness Verified 06/08/21 13:33 of breath Family History Other Hypertension Thyroid disorder Social History Smoking Status: Unknown if ever smoked alcohol intake: never substance use type: does not use what type of physical activity do you participate in: walking frequency: 1-2 times per week ROS ROS ED Constitutional Constitutional ED: Denies chills or fever(s) Musculoskeletal Musculoskeletal: Reports as per HPI and neck pain; Denies back pain or extremity pain Integumentary Reports as per HPI and rash; Denies Abrasions Neurologic Neurologic: Denies paresthesias or weakness EXAM Physical Exam Const Vital Signs: 06/08/21 13:32 Temperature 98.2 F Temperature Source Temporal Pulse Rate 89 Respiratory Rate 16 Blood Pressure 185/111 H Blood Pressure Mean 135 Pulse Ox 97 Oxygen Delivery Method Room Air Positive well nourished and well developed General Appearance ED: well developed and NAD HEENT HEENT Narrative: Mild erythema just right preauricular without significant tenderness, TM and EAC and pinna are all normal. No parotid tenderness or swelling. normocephalic and atraumatic Eyes PERRL and EOMs intact bilaterally Neck Neck Narrative: There are 3 small discrete areas of erythema that are mildly tender in the right neck, one of them is more on the trapezius area posteriorly, and has a central scab almost as if there was an insect bite of some sort, but there is no abscess here and it is only very mildly tender. She has very tender lymphadenopathy in this region including in the area of her right posterior caudal scalp where there is no erythema but she is having a lot of pain with palpation. Neck is supple without meningismus. Back/Spine normal ROM and normal to inspection Neuro oriented x3, no focal motor deficits and no sensory deficits noted Sensorium / Orientation: alert Psych mental status grossly normal and thought process normal Skin Skin Narrative: See above, several discrete areas of erythema that are not coalescent or indurated, no abscesses. This is all to the right neck. MDM MDM MDM Narrative Medical decision making narrative: The etiology of all of this is unknown but there is associated lymphadenopathy, it does not look like classic cellulitis, there are discrete areas of erythema but given the lymphadenopathy I think it would be reasonable to cover her with antibiotics for the possibility of bacterial invasion/infection. Discussed follow-up and reasons to return she is comfortable with that plan. Discharge Plan Triage Chief Complaint: Cellulitis ED Provider: Randall Langford Dx/Rx/DC Orders Clinical Impression: Cellulitis of neck Instructions: ED Cellulitis Prescriptions: New cephalexin [cephalexin] 500 MG capsule 500 mg PO Q6 Qty: 40 RF: 0 No Action pantoprazole 20 mg Tablet,Delayed Release (Dr/Ec) 40 mg PO DAILY RF: 0 levothyroxine 100 mcg Tablet 100 mcg PO DAILY RF: 0 lisinopril-hydrochlorothiazide 10-12.5 mg Tablet 1 tab PO DAILY RF: 0 citalopram [Celexa] 10 mg Tablet PO DAILY RF: 0 baclofen 10 mg Tablet PO RF: 0 naproxen 500 mg Tablet 500 mg PO BID PRN (Reason: Pain) RF: 0 Primary Care Provider: Carlos Gayle Chi Referrals: Carlos Gayle Chi, MD [Primary Care Provider] - 3-5 Days if not improving Disposition Disposition: Home, Self Care
== END 2021-06-08 14:18 | disposition home or self-care (01) ==
LOC: ED 14:01
PROVIDERS: Emergency Provider Emergency Medicine; PCP Family Medicine Geriatric Medicine
DX: L03.221 Cellulitis of neck (principal); E05.90 Thyrotoxicosis, unspecified without thyrotoxic crisis or storm; I10 Essential (primary) hypertension; K21.9 Gastro-esophageal reflux disease without esophagitis
CPT/HCPCS: 99282

== ENCOUNTER 2021-10-07 12:54 | Outpatient (CLI) | payer OTHER, SELFPAY ==
[2021-10-07 13:28] LABS: Absolute Lymphocyte Count 1.96 X10^3/uL (0.83-4.51); Absolute Neutrophil Count 3.9 X10^3/uL (2.0-7.7); Basophil# 0.03 X10^3/uL; Basophil% 0.5 % (0-1); Eosinophil# 0.07 X10^3/uL; Eosinophils% 1.1 % (0-5); Hematocrit 41.8 % (37-47); Hemoglobin 14.1 g/dL (12.0-15.0); Lymphocyte # 1.96 X10^3/ul (0.83-4.51); Lymphocyte % 30.3 % (19-41); Mean Corp Hgb Conc 33.7 g/dL (32-36); Mean Corpuscular Hgb 30.9 pg (27.0-32.0); Mean Corpuscular Volume 91.5 fL (81-99); Mean Platelet Vol. 10.3 fl (6.2-12.0); Monocyte# 0.46 X10^3/uL; Monocyte% 7.1 % (0-10); NRBC Flagged by Analyzer 0 % (0-5); Neutrophil # 3.93 X10^3/uL (2.7-7.7); Neutrophil % 60.8 % (47-70); Platelet Count 269 K/mm3 (150-450); RBC Distribution Width CV 13.1 % (11.6-14.6); RBC Distribution Width SD 43.6 fl (35.1-43.9); Red Blood Count 4.57 M/mm3 (4.2-5.4); White Blood Count 6.5 K/mm3 (4.4-11.0)
[2021-10-07 13:49] LABS: ALB/GLOB Ratio 1.2 RATIO (0.9-2.4); AST(SGOT) 19 U/L (15-37); Alanine Aminotransfer ALT/SGPT 32 U/L (13-56); Alkaline Phosphatase 94 U/L (45-117); Anion Gap 7 (5-15); BUN 13 mg/dL (7-18); BUN/Creat Ratio 12.6 RATIO (10-20); Chloride 105 mmol/L (98-107); Creatinine, Serum 1.03 mg/dL (0.55-1.02); EST Glomerular Filtration Rate 60 mL/min (>60); Est Glom Filt Rate - Afr Amer 72 mL/min (>60); Globulin 3.4 g/dL (2.2-4.2); Glucose 99 mg/dL (74-106); Potassium 3.6 mmol/L (3.5-5.1); Protein, Total 7.4 g/dL (6.4-8.2); Sodium Level 140 mmol/L (136-145)
[2021-10-07 14:17] LABS: Hepatitis C Antibody Non-Reactive (Nonreactive)
== END 2021-10-07 23:59 | disposition home or self-care (01) ==
LOC: POLAB3 12:55 → LABSPEC 13:01
PROVIDERS: PCP Family Medicine Geriatric Medicine; Visit Provider Family Medicine Geriatric Medicine
DX: Z13.89 Encounter for screening for other disorder (principal); I10 Essential (primary) hypertension
CPT/HCPCS: 80053; 84443; 85025; 86803

== ENCOUNTER 2021-10-09 10:31 | Outpatient (CLI) | payer OTHER, SELFPAY | END 2021-10-09 23:59 | disposition home or self-care (01) | PROVIDERS: PCP Family Medicine Geriatric Medicine; Referring Provider Family Medicine Geriatric Medicine; Visit Provider Family Medicine Geriatric Medicine | DX: R68.83 Chills (without fever) (principal) | CPT/HCPCS: 87635; 87804; 87807; C9803; U0003; U0005 ==

== ENCOUNTER 2021-10-14 08:45 | Outpatient (CLI) | payer OTHER, SELFPAY ==
--- NOTE | 2021-10-14 09:03 | RAD_ITS ---
STUDY: X-RAY - LUMBAR SPINE REASON FOR EXAM: Female, 51 years old. LOW BACK PAIN low back/left hip pain -- do not collimate out hip joints TECHNIQUE: XR Spine Lumbar Min 4 Views COMPARISON: None FINDINGS: Normal lumbar lordosis. There is a levoscoliosis of the lumbar spine. There is a normal alignment of the vertebrae. Normal vertebral bodies and endplates. Normal disc space heights. The soft tissue structures are unremarkable. RAD/L/S Spine Min 4 Views IMPRESSION: There are no acute findings. Electronically Signed: Castillo Guardado MD at 15:42 EDT ,
== END 2021-10-14 23:59 | disposition home or self-care (01) ==
LOC: RAD 08:48
PROVIDERS: PCP Family Medicine Geriatric Medicine; Referring Provider Chiropractor; Visit Provider Chiropractor
DX: M99.05 Segmental and somatic dysfunction of pelvic region (principal); M51.36 Other intervertebral disc degeneration, lumbar region; M99.03 Segmental and somatic dysfunction of lumbar region
CPT/HCPCS: 72110

== ENCOUNTER 2021-10-24 13:18 | Outpatient (CLI) | payer OTHER, SELFPAY ==
--- NOTE | 2021-10-24 13:20 | BI_ITS ---
MAMMOGRAPHY - BILATERAL SCREENING REASON FOR EXAM: Female, 51 years old. Routine annual screening examination. PERTINENT HISTORY: Non-contributory. TECHNIQUE: Digital bilateral breast inder (3D mammographic acquisition) in the CC and MLO projections. 2-D mediolateral oblique (MLO) and craniocaudad (CC) views of both breasts were obtained. CAD: Full Field Digital Mammography with Computer Added Detection was performed. COMPARISON: Comparison is made with prior study dated 07/21/2019. FINDINGS: Breast Composition: There are scattered areas of fibroglandular density. There are no dominant masses or suspicious calcifications. No other significant abnormalities are identified. There has been no significant change since the prior study. BI/SCRN MAMM (CAD)W/INDER BILAT IMPRESSION: Stable bilateral screening mammogram. Yearly follow-up mammogram recommended. (A) ASSESSMENT CATEGORY: BIRADS Category 1: Negative. A letter regarding these results will be sent to the patient by the facility within 30 days. Approximately 10% of breast cancers are not detected by mammography. A normal mammogram should not delay biopsy of a clinically suspicious abnormality. [id number] Electronically Signed: Adolfo Pederson MD at 14:29 EDT ,
== END 2021-10-24 23:59 | disposition home or self-care (01) ==
LOC: OPBI 13:19
PROVIDERS: PCP Family Medicine Geriatric Medicine; Referring Provider Family Medicine Geriatric Medicine; Visit Provider Family Medicine Geriatric Medicine
DX: Z12.31 Encounter for screening mammogram for malignant neoplasm of breast (principal)
CPT/HCPCS: 77063; 77067

== ENCOUNTER → 2021-11-10 | Outpatient (CLI) | payer OTHER, SELFPAY ==
--- NOTE | 2021-11-10 12:19 | CT_ITS ---
STUDY: CT BRAIN WITHOUT CONTRAST REASON FOR EXAM: Female, 51 years old. CLOSED HEAD INJURY. Syncopal episode. RADIATION DOSAGE (If Supplied By Facility): CTDIvol = ( 44.99 ) mGy, DLP = ( 779.24 ) mGycm TECHNIQUE: Transaxial CT imaging of the brain was performed without administration of intravenous contrast material. Individualized dose optimization techniques were used for this CT. COMPARISON: Comparison is made with prior examination dated 12/28/2018. FINDINGS: Normal soft tissue structures. Normal calvarium. Normal size ventricles and extra-axial spaces for the patient''s age. Normal white matter tracts of the cerebral hemispheres. Normal basal ganglia and thalami. Normal brainstem. Normal cerebellum. There is no intracranial hemorrhage. There are no findings of an acute ischemic infarction. Normal visualized paranasal sinuses. CT/Brain/Head without Contrast IMPRESSION: Normal unenhanced CT scan of the brain. Electronically Signed: Adolfo Pederson MD at 12:52 EDT ,
--- NOTE | 2021-11-10 12:19 | CT_ITS ---
STUDY: CTA CHEST REASON FOR EXAM: Female, 51 years old. ABN COAGULATION PROFILE, SYNCOPE AND COLLAPSE RADIATION DOSAGE (If Supplied By Facility): CTDIvol = ( 13.36 ) mGy, DLP = ( 505.42 ) mGycm TECHNIQUE: The examination was performed with the intravenous administration of IV 100mL [id number]-370. Post-processing of the angiographic images was performed, with multiplanar reformation and 3D reconstruction. Individualized dose optimization techniques were used for this CT. COMPARISON: None. FINDINGS: Normal enhancement of the main pulmonary artery and right and left pulmonary arteries. Normal enhancement of the bilateral peripheral pulmonary arteries. There is no demonstrated pulmonary embolism. Normal thoracic aorta and visualized great vessels. There is no demonstrated aortic dissection. Normal heart and pericardium. There are visualized mediastinal lymph nodes, which are within normal size limits, and with normal morphology. Normal hilar regions. Normal visualized trachea and bronchi. There is elevation of the right hemidiaphragm. Minimal increased markings at the right lung base suggestive of bibasilar atelectasis. Normal pleura. Normal chest wall structures. There are degenerative changes of thoracic spine. Small hiatal hernia. Status post cholecystectomy. CT/CTA Chest W/WO Contrast IMPRESSION: There is no evidence of pulmonary embolism. Mild degree of increased markings at the right lung base suggestive of a right basilar atelectasis. Electronically Signed: Adolfo Pederson MD at 12:55 EDT ,
== END | disposition home or self-care (01) ==
PROVIDERS: PCP Family Medicine Geriatric Medicine; Referring Provider Family Medicine Geriatric Medicine; Visit Provider Family Medicine Geriatric Medicine
DX: S09.90XA Unspecified injury of head, initial encounter (principal); R79.1 Abnormal coagulation profile; R55 Syncope and collapse
CPT/HCPCS: 70450; 71275; Q9967

== ENCOUNTER → 2021-11-10 | Outpatient (CLI) | payer OTHER, SELFPAY ==
--- NOTE | 2021-11-10 10:45 | RAD_ITS ---
STUDY: X-RAY - LEFT WRIST REASON FOR EXAM: Female, 51 years old. Wrist pain. TECHNIQUE: 2 view(s) of the wrist were obtained. COMPARISON: None. FINDINGS: Normal visualized distal radius and ulna. Normal radiocarpal articulation. Normal distal radioulnar articulation. Normal carpal bones. Normal carpal articulations. Normal carpometacarpal articulation of the thumb. Normal second through fifth carpometacarpal articulations. Normal visualized metacarpal bones. The soft tissue structures are unremarkable. RAD/Wrist 2 Views IMPRESSION: Normal x-ray examination of the wrist. Electronically Signed: kB Good MD at 11:13 EDT ,
--- NOTE | 2021-11-10 10:45 | RAD_ITS ---
STUDY: X-RAY - RIGHT ANKLE REASON FOR EXAM: Female, 51 years old. Ankle pain. TECHNIQUE: 2 view(s) of the ankle. COMPARISON: None. FINDINGS: Normal visualized distal tibia and fibula. Normal medial and lateral malleoli. Normal tibiotalar articulation and ankle mortise. Normal visualized talus and calcaneus. The visualized subtalar, talonavicular, calcaneocuboid and tarsal articulations are normal. The soft tissue structures are unremarkable. RAD/Ankle 2 Views IMPRESSION: Normal x-ray examination of the ankle. Electronically Signed: Bk Good MD at 11:14 EDT ,
[2021-11-10 11:13] LABS: Absolute Neutrophil Count 3.9 X10^3/uL (2.0-7.7); Basophil# 0.02 X10^3/uL; Basophil% 0.3 % (0-1); Eosinophils% 1.5 % (0-5); Hematocrit 41.5 % (37-47); Hemoglobin 14.2 g/dL (12.0-15.0); Lymphocyte % 28.6 % (19-41); Mean Corp Hgb Conc 34.2 g/dL (32-36); Mean Corpuscular Hgb 31.5 pg (27.0-32.0); Monocyte% 10.5 % (0-10); NRBC Flagged by Analyzer 0 % (0-5); Neutrophil # 3.89 X10^3/uL (2.7-7.7); Neutrophil % 58.6 % (47-70); Platelet Count 247 K/mm3 (150-450); RBC Distribution Width CV 13.1 % (11.6-14.6); RBC Distribution Width SD 43.8 fl (35.1-43.9); Red Blood Count 4.51 M/mm3 (4.2-5.4); White Blood Count 6.6 K/mm3 (4.4-11.0)
[2021-11-10 11:32] LABS: D-Dimer Quantitative (DVT/PE) 0.86 FEU/ug/m (0.27-0.49)
[2021-11-10 11:58] LABS: ALB/GLOB Ratio 1.1 RATIO (0.9-2.4); AST(SGOT) 24 U/L (15-37); Alanine Aminotransfer ALT/SGPT 44 U/L (13-56); Albumin, Serum 4.1 g/dL (3.2-5.0); Alkaline Phosphatase 86 U/L (45-117); Anion Gap 4 (5-15); BUN 18 mg/dL (7-18); BUN/Creat Ratio 16.2 RATIO (10-20); CPK Total, Creatine Kinase 98 U/L (26-192); Chloride 98 mmol/L (98-107); Creatinine, Serum 1.11 mg/dL (0.55-1.02); EST Glomerular Filtration Rate 55 mL/min (>60); Est Glom Filt Rate - Afr Amer 66 mL/min (>60); Globulin 3.6 g/dL (2.2-4.2); Glucose 98 mg/dL (74-106); Protein, Total 7.7 g/dL (6.4-8.2); Sodium Level 134 mmol/L (136-145); Thyroid Stim Hormone (TSH) 0.37 uIU/mL (0.358-3.74)
[2021-11-11 11:09] LABS: Myoglobin, Serum 34 ng/mL (25-58)
[2021-11-11 11:27] LABS: Troponin-I HS 4 pg/mL (3.0-54.0)
== END | disposition home or self-care (01) ==
PROVIDERS: PCP Family Medicine Geriatric Medicine; Visit Provider Family Medicine Geriatric Medicine
DX: M25.539 Pain in unspecified wrist (principal); M25.579 Pain in unspecified ankle and joints of unspecified foot; I10 Essential (primary) hypertension; R06.02 Shortness of breath; R55 Syncope and collapse
CPT/HCPCS: 36415; 73100; 73600; 80053; 82550; 83874; 84443; 84484; 85025; 85379

== ENCOUNTER → 2021-11-21 | Outpatient (CLI) | payer OTHER, SELFPAY ==
--- NOTE | 2021-11-21 11:18 | CT_ITS ---
STUDY: CT SCAN REST LEFT REASON FOR EXAM: Female, 51 years old. Increasing left wrist pain following a fall. RADIATION DOSAGE (If Supplied By Facility): CTDIvol = ( 24.58 ) mGy, DLP = ( 486.85 ) mGycm. Individualized dose optimization techniques were used for this CT.? TECHNIQUE: Multiple axial tomographic images were obtained without intravenous contrast administration. Coronal and sagittal reconstruction was obtained as well. COMPARISON: None. FINDINGS: No fracture is seen. There is good alignment. No evidence of subluxation. CT/Extremity Upper without Contra IMPRESSION: No acute abnormality is seen. Electronically Signed: Adolfo Pederson MD at 12:14 EDT ,
== END | disposition home or self-care (01) ==
LOC: CT 11:12
PROVIDERS: PCP Family Medicine Geriatric Medicine; Referring Provider Family Medicine Geriatric Medicine; Visit Provider Family Medicine Geriatric Medicine
DX: M25.532 Pain in left wrist (principal)
CPT/HCPCS: 73200

== ENCOUNTER → 2021-12-09 | Outpatient (CLI) | payer OTHER, SELFPAY ==
--- NOTE | 2021-12-09 09:59 | TELEMED_ITS ---
[facility] has confirmed receipt of a request for visit. This document confirms receipt of the order initiating the consult. To find the results of the consultation, please view the patient's reports for the scanned Telemed Consult.
== END | disposition home or self-care (01) ==
LOC: PSN 08:16
PROVIDERS: PCP Family Medicine Geriatric Medicine; Referring Provider Family Medicine Geriatric Medicine; Visit Provider Family Medicine Geriatric Medicine
DX: R55 Syncope and collapse (principal)
CPT/HCPCS: 95819

== ENCOUNTER 2022-01-03 14:08 | Emergency (ER) | payer OTHER, SELFPAY ==
[2022-01-03 14:08] VITALS: BP 208/92; PULSE 81; RESP 18; TEMP 36.9; O2SAT 97; BMI 77.4
--- NOTE | 2022-01-03 15:00 | RAD_ITS ---
STUDY: X-RAY CHEST REASON FOR EXAM: Female, 51 years old. . TECHNIQUE: Single frontal view of the chest. COMPARISON: 08/29/2020. FINDINGS: The lungs are clear and expanded. There is no demonstrated pleural abnormality. Stable cardiomegaly. Normal mediastinum and dashawn. Normal visualized pulmonary arteries. Normal visualized aortic arch and descending thoracic aorta. Normal visualized thoracic spine. Normal visualized ribs, clavicles, and shoulders. There is no demonstrated abnormality of the visualized soft tissue structures of the upper abdomen. RAD/Chest 1 View (Portable) IMPRESSION: Stable cardiomegaly. No active or acute cardiopulmonary disease. Electronically Signed: Bk Good MD at 15:56 EDT ,
[2022-01-03 15:06] VITALS: O2SAT 98
--- NOTE | 2022-01-03 15:08 | EKG12_ITS ---
Test Reason : SOB Blood Pressure : / mmHG Vent. Rate : 068 BPM Atrial Rate : 068 BPM P-R Int : 132 ms QRS Dur : 082 ms QT Int : 418 ms P-R-T Axes : 023 -10 -05 degrees QTc Int : 444 ms Normal sinus rhythm Normal ECG Confirmed by ETHEL SHERWOOD, LIBRADO ([id number]), order editor ANGELO VERMA ([id number]) on 01/06/2022 8:16:05 AM Referred By: LIAN Confirmed By:LIBRADO DAVENPORT MD
[2022-01-03] MEDS: guaiFENesin/Codeine 5 ML UDC 10 ML PO (15:24)
[2022-01-03 15:37] LABS: Absolute Lymphocyte Count 2.53 X10^3/uL (0.83-4.51); Absolute Neutrophil Count 4.2 X10^3/uL (2.0-7.7); Basophil# 0.04 X10^3/uL; Basophil% 0.5 % (0-1); Eosinophil# 0.14 X10^3/uL; Eosinophils% 1.8 % (0-5); Hematocrit 40.8 % (37-47); Hemoglobin 13.8 g/dL (12.0-15.0); Lymphocyte # 2.53 X10^3/ul (0.83-4.51); Lymphocyte % 32.9 % (19-41); Mean Corp Hgb Conc 33.8 g/dL (32-36); Mean Corpuscular Hgb 31.3 pg (27.0-32.0); Mean Corpuscular Volume 92.5 fL (81-99); Mean Platelet Vol. 9.7 fl (6.2-12.0); Monocyte# 0.68 X10^3/uL; Monocyte% 8.9 % (0-10); NRBC Flagged by Analyzer 0 % (0-5); Neutrophil % 54.7 % (47-70); Platelet Count 257 K/mm3 (150-450); RBC Distribution Width SD 44.1 fl (35.1-43.9); Red Blood Count 4.41 M/mm3 (4.2-5.4); White Blood Count 7.7 K/mm3 (4.4-11.0)
[2022-01-03 16:07] LABS: Anion Gap 8 (5-15); BUN 14 mg/dL (7-18); BUN/Creat Ratio 14.3 RATIO (10-20); Calcium,Total 9.1 mg/dL (8.5-10.1); Chloride 104 mmol/L (98-107); Creatinine, Serum 0.98 mg/dL (0.55-1.02); EST Glomerular Filtration Rate 63 mL/min (>60); Est Glom Filt Rate - Afr Amer 76 mL/min (>60); Estimated Creatinine Clearance 53.11 ml/min; Glucose 110 mg/dL (74-106); Potassium 3.3 mmol/L (3.5-5.1); Sodium Level 139 mmol/L (136-145); Troponin-I HS 3 pg/mL (3.0-54.0)
--- NOTE | 2022-01-03 16:11 | EX.ED.DYSGE1 ---
HPI History of Present Illness Chief Complaint: Shortness of Breath Informant: patient Onset/Context/Timing Onset: Days (3 days) Context: Gradual Onset Current Severity: Moderate Maximum Severity: Moderate Narrative Narrative: Patient presents with shortness of breath with cough and congestion over the past 3 days. She states she is coughing up yellow to green-colored sputum. She denies fever but will have occasional chills. She states her ribs and abdomen are sore from coughing but denies actual chest pain. [facility] Medical History Bilateral headaches GERD (gastroesophageal reflux disease) Hormone deficiency Hypertension Hyperthyroidism Hypothyroidism Home Medications levothyroxine 100 mcg tablet 100 mcg PO DAILY 03/11/21 [History Last Taken Unknown] lisinopril 10 mg-hydrochlorothiazide 12.5 mg tablet 1 tab PO DAILY 03/11/21 [History Last Taken Unknown] pantoprazole 20 mg tablet,delayed release 40 mg PO DAILY 03/11/21 [History Last Taken Unknown] benzonatate 200 mg capsule 200 mg PO BID PRN cough #10 caps 01/03/22 [Rx Last Taken Unknown] codeine 10 mg-guaifenesin 100 mg/5 mL oral liquid 5 ml PO Q6H PRN cough #100 mL 01/03/22 [Rx Last Taken Unknown] doxycycline monohydrate 100 mg capsule 100 mg PO BID #20 caps 01/03/22 [Rx Last Taken Unknown] prednisone 20 mg tablet 40 mg PO DAILY #10 tabs 01/03/22 [Rx Last Taken Unknown] Allergy/AdvReac Type Severity Reaction Status Date / Time meperidine HCl [From Demerol] Allergy Shortness Verified 01/03/22 14:10 of breath Family History Other Hypertension Thyroid disorder Social History Smoking Status: Former smoker alcohol intake: never substance use type: does not use what type of physical activity do you participate in: walking frequency: 1-2 times per week ROS ROS ED Constitutional Constitutional ED: Reports chills; Denies fever(s) Eyes Eyes: Denies change in vision or discharge from eye(s) ENT ENT ED: Reports other Details: Congestion ; Denies discharge from eye(s), rhinorrhea or sore throat Cardiovascular Cardiovascular: Denies chest pain or palpitations Respiratory/Chest Respiratory/Chest: Reports cough, dyspnea and sputum Gastrointestinal Gastrointestinal: Denies abdominal pain, diarrhea, nausea or vomiting Genitourinary Genitourinary ED: Denies difficulty urinating or dysuria Musculoskeletal Musculoskeletal: Reports myalgias; Denies back pain or extremity pain Integumentary Denies Abrasions or rash Neurologic Neurologic: Denies headache(s) or weakness Allergic/Immunologic Allergic/Immunologic ED: Denies lip swelling or urticaria EXAM Physical Exam Const Vital Signs: 01/03/22 14:08 01/03/22 15:06 01/03/22 16:44 Temperature 98.4 F Temperature Source Temporal Pulse Rate 81 Respiratory Rate 18 Respiratory Effort Short of Breath Respiratory Depth Normal Respiratory Pattern Normal Blood Pressure 208/92 H 165/95 H Blood Pressure Mean 130 118 Pulse Ox 97 Oxygen Delivery Method Room Air Room Air 01/03/22 17:15 01/03/22 17:15 01/03/22 17:30 Temperature Temperature Source Pulse Rate 64 91 Respiratory Rate 18 16 Respiratory Effort Respiratory Depth Respiratory Pattern Blood Pressure Blood Pressure Mean Pulse Ox 98 98 Oxygen Delivery Method Room Air Room Air Positive well nourished and well developed General Appearance ED: well developed HEENT Reports moist mucous membranes Eyes PERRL and EOMs intact bilaterally Chest Wall inspection of chest normal and palpation of chest normal Resp normal respiratory effort and clear to auscultation bilaterally Cardio regular rate and regular rhythm GI non-tender Extremity normal to inspection Neuro oriented x3, CN's II-XII intact bilaterally and no sensory deficits noted Motor Exam: strength 5/5 throughout Psych mental status grossly normal Skin no rashes or lesions noted MDM MDM MDM Narrative Medical decision making narrative: Chest x-ray, lab work, EKG obtained. COVID and influenza swabs obtained. Patient given Robitussin-AC for control of cough Lab Data Attestation: I reviewed the patient's lab results. Labs: Laboratory Results - last 24 hr 01/03/22 01/03/22 15:15 15:15 WBC 7.7 RBC 4.41 Hgb 13.8 Hct 40.8 MCV 92.5 MCH 31.3 MCHC 33.8 RDW Std Deviation 44.1 H RDW Coeff of Franky 13.0 Plt Count 257 MPV 9.7 Immature Gran % (Auto) 1.200 H Neut % (Auto) 54.7 Lymph % (Auto) 32.9 Terry % (Auto) 8.9 Eos % (Auto) 1.8 Baso % (Auto) 0.5 Absolute Neuts (auto) 4.2 Absolute Lymphs (auto) 2.53 Nucleated RBC % 0 Sodium 139 Potassium 3.3 L Chloride 104 Carbon Dioxide 27.0 Anion Gap 8 BUN 14 Creatinine 0.98 Estim Creat Clear Calc 53.11 Est GFR (MDRD) Af Amer 76 Est GFR (MDRD) Non-Af 63 BUN/Creatinine Ratio 14.3 Glucose 110 H Calcium 9.1 Troponin I High Sens 3 Radiography Chest X-Ray - ED: 1 View, Read by ED Physician, Normal, Heart, Lungs and Mediastinum Diagnostic Testing: Clinical Impression(s) from Imaging Studies Chest X-Ray 01/03/22 15:00 IMPRESSION: Stable cardiomegaly. No active or acute cardiopulmonary disease. Electronically Signed: Bk Good MD at 15:56 EDT , EKG Initial EKG: Attestation: I personally reviewed and interpreted this EKG as follows: Interpretation: Sinus Rhythm (Sinus at 68 with no acute ischemia.) Treatment and Re-Evaluation Narrative: On repeat evaluation patient still has significant coughing. Repeat auscultation of her lungs reveals diminished lung sounds throughout. DuoNeb treatment is ordered. At this time patient reports significant provement after the breathing treatment. Lab work is reviewed and reveals a normal white count. Chemistry studies significant only for slightly low potassium at 3.3. Troponin is normal at 3. Chest x-ray reveals no acute findings. At this time with patient having bronchitis and bronchospasm she will be treated with a course of doxycycline, prednisone, albuterol inhaler. I will write her for Berny as well as Marii Stout. Return instructions are provided. Discharge Plan Triage Chief Complaint: Shortness of Breath ED Provider: Catalina Keenan Dx/Rx/DC Orders Clinical Impression: Bronchitis, Bronchospasm Instructions: ED Bronchitis with Wheezing (Adult) Prescriptions: New doxycycline monohydrate 100 mg capsule 100 mg PO BID Qty: 20 0RF codeine-guaifenesin 10-100 mg/5 mL liquid 5 ml PO Q6H PRN (Reason: cough) Qty: 100 0RF benzonatate 200 mg capsule 200 mg PO BID PRN (Reason: cough) Qty: 10 0RF prednisone 20 mg tablet 40 mg PO DAILY Qty: 10 0RF No Action pantoprazole 20 mg Tablet,Delayed Release (Dr/Ec) 40 mg PO DAILY levothyroxine 100 mcg Tablet 100 mcg PO DAILY lisinopril-hydrochlorothiazide 10-12.5 mg Tablet 1 tab PO DAILY Primary Care Provider: Carlos Gayle Chi Referrals: Carlos Gayle Chi, MD [Primary Care Provider] - 1 Week Disposition Disposition: Home, Self Care
[2022-01-03 16:44] VITALS: BP 165/95
[2022-01-03] MEDS: Ipratropium/Albuterol Sulfate 3 ML AMPUL.NEB INHALATION (17:13)
[2022-01-03 17:15] VITALS: PULSE 64; RESP 18; O2SAT 98
[2022-01-03 17:30] VITALS: PULSE 91; RESP 16; O2SAT 98
[2022-01-03] MEDS: Doxycycline 100 MG CAPSULE PO (18:07)
[2022-01-03] MEDS: predniSONE 20 MG Tablet 40 MG PO (18:07)
[2022-01-03] MEDS: INHALER, ASSIST DEVICES 1 EACH SPACER INHALATION (18:08)
[2022-01-03 18:09] VITALS: BP 159/90; PULSE 81; RESP 18; O2SAT 97
== END 2022-01-03 18:33 | disposition home or self-care (01) ==
PROVIDERS: Emergency Provider Emergency Medicine; PCP Family Medicine Geriatric Medicine; Visit Provider Emergency Medicine
DX: J40 Bronchitis, not specified as acute or chronic (principal); Z87.891 Personal history of nicotine dependence; I10 Essential (primary) hypertension; J98.01 Acute bronchospasm; K21.9 Gastro-esophageal reflux disease without esophagitis; E03.9 Hypothyroidism, unspecified
CPT/HCPCS: 71045; 80048; 84484; 85025; 87428; 93005; 94640; 96360; 96361; 99284; J7040; A4216

== ENCOUNTER → 2022-02-03 | Outpatient (CLI) | payer OTHER, SELFPAY | END | disposition home or self-care (01) | LOC: PSN 12:27 | PROVIDERS: PCP Family Medicine Geriatric Medicine; Visit Provider Internal Medicine Cardiovascular Disease | DX: R55 Syncope and collapse (principal) ==

== ENCOUNTER → 2022-09-07 | Outpatient (CLI) | payer OTHER, SELFPAY ==
[2022-09-07 11:57] LABS: Absolute Lymphocyte Count 2.32 X10^3/uL (0.83-4.51); Absolute Neutrophil Count 5.4 X10^3/uL (2.0-7.7); Basophil# 0.02 X10^3/uL; Basophil% 0.2 % (0-1); Eosinophil# 0.15 X10^3/uL; Eosinophils% 1.7 % (0-5); Hematocrit 40.9 % (37-47); Hemoglobin 13.9 g/dL (12.0-15.0); Lymphocyte # 2.32 X10^3/ul (0.83-4.51); Lymphocyte % 26.8 % (19-41); Mean Corpuscular Hgb 30.9 pg (27.0-32.0); Mean Corpuscular Volume 90.9 fL (81-99); Monocyte# 0.73 X10^3/uL; Monocyte% 8.4 % (0-10); NRBC Flagged by Analyzer 0 % (0-5); Neutrophil # 5.39 X10^3/uL (2.7-7.7); Neutrophil % 62.4 % (47-70); Platelet Count 277 K/mm3 (150-450); RBC Distribution Width CV 12.6 % (11.6-14.6); RBC Distribution Width SD 41.6 fl (35.1-43.9); White Blood Count 8.7 K/mm3 (4.4-11.0)
[2022-09-07 12:22] LABS: AST(SGOT) 46 U/L (15-37); Alanine Aminotransfer ALT/SGPT 68 U/L (13-56); Alkaline Phosphatase 128 U/L (45-117); Anion Gap 9 (5-15); BUN 19 mg/dL (7-18); BUN/Creat Ratio 18.8 RATIO (10-20); Calcium,Total 9.6 mg/dL (8.5-10.1); Chloride 103 mmol/L (98-107); Creatinine, Serum 1.01 mg/dL (0.55-1.02); EST Glomerular Filtration Rate 61 mL/min (>60); Est Glom Filt Rate - Afr Amer 74 mL/min (>60); Estradiol 12.8 pg/mL; Ferritin 137 ng/mL (8-252); Free T3 2.5 pg/mL (2.18-3.98); Globulin 3.9 g/dL (2.2-4.2); Glucose 109 mg/dL (74-106); Iron 101 ug/dL (50-170); Potassium 3.5 mmol/L (3.5-5.1); Protein, Total 7.9 g/dL (6.4-8.2); Sodium Level 140 mmol/L (136-145); T4 Free Direct 0.95 ng/dL (0.76-1.46); Thyroid Stim Hormone (TSH) 4.39 uIU/mL (0.358-3.74)
[2022-09-07 12:31] LABS: Vitamin B12 435 pg/mL (211-911)
[2022-09-07 13:02] LABS: Progesterone Level < 0.21 ng/mL (See Comment)
[2022-09-09 18:50] LABS: ANTINUCLEAR ANTIBODIES DIRECT Negative (Negative)
== END | disposition home or self-care (01) ==
LOC: LABSPEC 10:31
PROVIDERS: PCP Family Medicine; Visit Provider Family Medicine
DX: E03.9 Hypothyroidism, unspecified (principal); E53.8 Deficiency of other specified B group vitamins; Z51.81 Encounter for therapeutic drug level monitoring; E55.9 Vitamin D deficiency, unspecified; R79.89 Other specified abnormal findings of blood chemistry; D64.9 Anemia, unspecified
CPT/HCPCS: 80053; 82306; 82607; 82670; 82728; 83540; 84144; 84439; 84443; 84481; 85025; 86038

== ENCOUNTER → 2023-01-26 | Outpatient (CLI) | payer OTHER, SELFPAY ==
[2023-01-26 15:16] LABS: Absolute Lymphocyte Count 2.19 X10^3/uL (0.83-4.51); Basophil# 0.03 X10^3/uL; Basophil% 0.4 % (0-1); Eosinophil# 0.12 X10^3/uL; Eosinophils% 1.8 % (0-5); Hematocrit 40.7 % (37-47); Hemoglobin 13.5 g/dL (12.0-15.0); Lymphocyte # 2.19 X10^3/ul (0.83-4.51); Mean Corp Hgb Conc 33.2 g/dL (32-36); Mean Corpuscular Hgb 30.3 pg (27.0-32.0); Mean Corpuscular Volume 91.5 fL (81-99); Mean Platelet Vol. 10.5 fl (6.2-12.0); Monocyte# 0.53 X10^3/uL; Monocyte% 7.7 % (0-10); NRBC Flagged by Analyzer 0 % (0-5); Neutrophil # 3.97 X10^3/uL (2.7-7.7); Platelet Count 256 K/mm3 (150-450); RBC Distribution Width CV 12.9 % (11.6-14.6); RBC Distribution Width SD 42.6 fl (35.1-43.9); Red Blood Count 4.45 M/mm3 (4.2-5.4); White Blood Count 6.9 K/mm3 (4.4-11.0)
[2023-01-26 15:49] LABS: ALB/GLOB Ratio 1.1 RATIO (0.9-2.4); AST(SGOT) 28 U/L (15-37); Alanine Aminotransfer ALT/SGPT 42 U/L (13-56); Albumin, Serum 3.9 g/dL (3.2-5.0); Alkaline Phosphatase 157 U/L (45-117); Anion Gap 5 (5-15); BUN 15 mg/dL (7-18); BUN/Creat Ratio 16.1 RATIO (10-20); Calcium,Total 8.6 mg/dL (8.5-10.1); Chloride 105 mmol/L (98-107); Creatinine, Serum 0.93 mg/dL (0.55-1.02); EST Glomerular Filtration Rate 67 mL/min (>60); Est Glom Filt Rate - Afr Amer 81 mL/min (>60); Globulin 3.4 g/dL (2.2-4.2); Glucose 100 mg/dL (74-106); Potassium 3.6 mmol/L (3.5-5.1); Protein, Total 7.3 g/dL (6.4-8.2); Sodium Level 139 mmol/L (136-145); T4 Free Direct 0.75 ng/dL (0.76-1.46)
== END | disposition home or self-care (01) ==
PROVIDERS: PCP Nurse Practitioner Family; Referring Provider Nurse Practitioner Family; Visit Provider Nurse Practitioner Family
DX: R55 Syncope and collapse (principal); R51.9 Headache, unspecified; R11.0 Nausea; E03.9 Hypothyroidism, unspecified
CPT/HCPCS: 36415; 80053; 84439; 84443; 85025

== ENCOUNTER 2023-06-21 13:09 | Emergency (ER) | payer OTHER, SELFPAY ==
[2023-06-21 13:10] VITALS: BP 176/104; PULSE 92; RESP 20; TEMP 36.9; O2SAT 94
--- NOTE | 2023-06-21 13:52 | EX.ED.DYSGE1 ---
HPI <WILLIAM Lugo - Last Filed: 06/21/23 15:33> History of Present Illness Chief Complaint: General Illness Narrative Narrative: Yesterday patient developed body aches, nausea, fatigue, and cough. She states she is able to keep down water and Gatorade but does not feel like eating. No chest pain or shortness of breath. No abdominal pain or diarrhea. No urinary symptoms. Denies sick contacts but she was a big family libertarian recently. She states she has also had itchy hives on her face over the last 2 days. She denies putting anything new on her face or new exposures. She is on blood pressure and thyroid medicine should but nothing recently. No difficulty swallowing or breathing, no lip or tongue swelling. PFSH <WILLIAM Lugo - Last Filed: 06/21/23 15:33> [facility] Medical History Abnormal EKG Back pain Bilateral headaches COVID-19 (03/10/21) DDD (degenerative disc disease) Essential hypertension GERD (gastroesophageal reflux disease) Hormone deficiency Hyperthyroidism Hypothyroidism Obesity Segmental and somatic dysfunction of cervical region Segmental and somatic dysfunction of lumbar region Segmental and somatic dysfunction of pelvic region Segmental and somatic dysfunction of thoracic region Home Medications levothyroxine 100 mcg tablet 100 mcg PO DAILY 03/11/21 [History Last Taken Unknown] lisinopril 10 mg-hydrochlorothiazide 12.5 mg tablet 1 tab PO DAILY 03/11/21 [History Last Taken Unknown] pantoprazole 20 mg tablet,delayed release 40 mg PO DAILY 03/11/21 [History Last Taken Unknown] benzonatate 100 mg capsule 200 mg (2 x 100 mg) PO TID PRN cough #30 caps 10/19/22 [Rx Last Taken Unknown] Allergy/AdvReac Type Severity Reaction Status Date / Time meperidine HCl [From Demerol] Allergy Shortness Verified 06/21/23 13:09 of breath Family History Mother Hypertension Father Hypertension Diabetes Sister Hypertension Grandmother CVA (cerebral vascular accident) Other Thyroid disorder Surgical History History of cholecystectomy History of hysterectomy Hx of breast reduction, elective Social History Smoking Status: Former smoker quit date: 07/12/89 alcohol intake: never substance use type: does not use what type of physical activity do you participate in: walking frequency: 1-2 times per week ROS <WILLIAM Lugo - Last Filed: 06/21/23 15:33> ROS ED ROS Narrative Constitutional: Positive for subjective fever, chills, malaise. CVS: Negative for chest pain, syncope. Respiratory: Positive for cough. Negative for shortness of breath. GI: Positive for nausea. Negative for abdominal pain, vomiting, melena, hematochezia. : Negative for dysuria, hematuria. Neuro: Negative for headache. EXAM <WILLIAM Lugo - Last Filed: 06/21/23 15:33> Physical Exam Narrative Exam Narrative: CONST: Patient lying in bed appears ill but nontoxic. EYES: Normal inspection. ENT: Nares clear, normal posterior oropharynx, no angioedema. Urticaria on right eyelid and forehead. NECK: Normal inspection. No meningismus. RESP: No respiratory distress, CTAB. CVS: Regular rate and rhythm, no murmur, no gallop. ABD: Soft and nontender, no guarding or rebound, nondistended. SKIN: Color normal, no rash, warm, dry, intact. EXTREMITIES: Normal appearance, no pedal edema. NEURO: Oriented x4. PSYCH: Normal affect. Const Vital Signs: 06/21/23 13:10 06/21/23 13:42 Temperature 98.4 F Temperature Source Temporal Pulse Rate 92 Respiratory Rate 20 H Respiratory Pattern Irregular Blood Pressure 176/104 H Blood Pressure Mean 128 Pulse Ox 94 Oxygen Delivery Method Room Air <Akira Zafar MD - Last Filed: 06/21/23 21:10> Physical Exam Const Vital Signs: 06/21/23 13:10 06/21/23 13:42 Temperature 98.4 F Temperature Source Temporal Pulse Rate 92 Respiratory Rate 20 H Respiratory Pattern Irregular Blood Pressure 176/104 H Blood Pressure Mean 128 Pulse Ox 94 Oxygen Delivery Method Room Air MDM <WILLIAM Lugo - Last Filed: 06/21/23 15:33> MDM MDM Narrative Medical decision making narrative: History gathered from: Patient and friend She has had 2 days of bodyaches, nausea, cough. She appears ill but nontoxic. Vital signs stable. On exam she has a small amount of hives/viral exanthem on her right eyelid and forehead. There is no angioedema. She already took Benadryl and it is very localized to like a Pepcid but do not think she needs systemic steroids. The rest of her exam is benign. Test returned positive for COVID-19. She was treated symptomatically with IV fluids, Zofran, and Toradol. I do not think she needs a chest x-ray as she has clear lung sounds and no hypoxia. Nurse states she urinated multiple times while here and requested urine be checked which is normal. Patient has no urinary symptoms. Symptomatic care for COVID was discussed and she was discharged in stable condition. Lab Data Attestation: I reviewed the patient's lab results. Labs: Laboratory Results - last 24 hr 06/21/23 14:45 Urine Color Straw Urine Clarity Clear Urine pH 7.0 Ur Specific [place] 1.010 Urine Protein Negative Urine Glucose (UA) Normal Urine Ketones Negative Urine Occult Blood Negative Urine Nitrite Negative Urine Bilirubin Negative Urine Urobilinogen Normal Ur Leukocyte Esterase Negative Urine RBC 0 SEEN Urine WBC 0 SEEN Ur Squamous Epith Cells 0 SEEN Urine Bacteria 0 SEEN Urine Mucus 0 SEEN <Akira Zafar MD - Last Filed: 06/21/23 21:10> MDM MDM Narrative Medical decision making narrative: History gathered from: Patient and friend She has had 2 days of bodyaches, nausea, cough. She appears ill but nontoxic. Vital signs stable. On exam she has a small amount of hives/viral exanthem on her right eyelid and forehead. There is no angioedema. She already took Benadryl and it is very localized to like a Pepcid but do not think she needs systemic steroids. The rest of her exam is benign. Test returned positive for COVID-19. She was treated symptomatically with IV fluids, Zofran, and Toradol. I do not think she needs a chest x-ray as she has clear lung sounds and no hypoxia. Nurse states she urinated multiple times while here and requested urine be checked which is normal. Patient has no urinary symptoms. Symptomatic care for COVID was discussed and she was discharged in stable condition. Dr. Zafar: I have personally performed a face to face assessment of the patient and have reviewed the TRIPP Note. I performed a substantive portion of the visit including all aspects of the following. My morris findings include: History is 2 days of bodyaches, nausea, cough. Sick. Exam is afebrile. Vital signs noted. Nontoxic-appearing. Regular rate and rhythm. Lungs clear to auscultation bilaterally. Abdomen soft and nontender. Positive hives on face. Medical Decision Making: Check UA, check COVID swab. Positive for COVID. I feel she has more of a viral syndrome. She was given Benadryl. Review of her urinalysis shows no evidence of infection. I do not feel antibiotics are indicated. [id number] symptomatic treatment. Follow-up primary care. Disposition is discharged home in stable condition. Other additions or changes: [None] History & Record Review Discussion w/independent historian: Patient Additional record(s) reviewed:: Prior ED visit Lab Data Labs: Laboratory Results - last 24 hr 06/21/23 14:45 Urine Color Straw Urine Clarity Clear Urine pH 7.0 Ur Specific [place] 1.010 Urine Protein Negative Urine Glucose (UA) Normal Urine Ketones Negative Urine Occult Blood Negative Urine Nitrite Negative Urine Bilirubin Negative Urine Urobilinogen Normal Ur Leukocyte Esterase Negative Urine RBC 0 SEEN Urine WBC 0 SEEN Ur Squamous Epith Cells 0 SEEN Urine Bacteria 0 SEEN Urine Mucus 0 SEEN Discharge Plan Triage Chief Complaint: General Illness ED Midlevel Provider: Jumana Arana ED Provider: Akira Zafar Dx/Rx/DC Orders Clinical Impression: COVID-19 Instructions: Coronavirus Disease 2019 (COVID-19): Caring for Yourself or Others Prescriptions: No Action benzonatate 100 mg capsule 200 mg PO TID PRN (Reason: cough) Qty: 30 0RF pantoprazole 20 mg Tablet,Delayed Release (Dr/Ec) 40 mg PO DAILY levothyroxine 100 mcg Tablet 100 mcg PO DAILY lisinopril-hydrochlorothiazide 10-12.5 mg Tablet 1 tab PO DAILY Primary Care Provider: Flaquita Lanza Referrals: Flaquita Lanza, MENTAL RETARDATION NURSE-C [Primary Care Provider] - Activity Restrictions/Additional Instructions: Treat COVID-19 with rest, fluids, Tylenol and ibuprofen as needed. Disposition Disposition: Home, Self Care Discharge Date/Time: 06/21/23 15:31
[2023-06-21] MEDS: Ketorolac 15 MG/ML Vial IV (14:09)
[2023-06-21] MEDS: Ondansetron 4 MG/2 ML Vial IV (14:09)
[2023-06-21] MEDS: 0.9% Normal Saline (1000mL) 1,000 ML 999 ML IV (14:09)
[2023-06-21 14:58] LABS: Bacteria 0 SEEN /hpf (None Seen); Mucous, Urine 0 SEEN /hpf (<or=2+); Red Blood Cells-Urine 0 SEEN /hpf (0-5); Squamous Epithelial Cells - UA 0 SEEN /hpf (5-10); White Blood Cells 0 SEEN /hpf (0-5)
[2023-06-21 15:14] LABS: Color, Urine Straw (Yellow); Glucose, Dipstick Normal (Normal); Ketone-Dipstick Negative (Negative); Leukocyte Esterase-Dipstick Negative /ul (Negative); Nitrite-Dipstick Negative (Negative); Occult Blood-Urine Negative /ul (Negative); Protein-Dipstick Negative (Negative); Urine Bilirubin Dipstick Negative (Negative); Urine Clarity Clear (Clear); Urine Urobilinogen Normal (Normal)
[2023-06-21] MEDS: Famotidine 200 MG/20 ML MDV 20 MG in 0.9% Normal Saline (Pres. free 8 ML 300 MG IV (15:26)
== END 2023-06-21 15:31 | disposition home or self-care (01) ==
PROVIDERS: Physician Assistant; Emergency Provider Emergency Medicine; PCP Nurse Practitioner Family; Visit Provider Emergency Medicine
DX: U07.1 COVID-19 (principal); R11.0 Nausea; I10 Essential (primary) hypertension; Z87.891 Personal history of nicotine dependence; E03.9 Hypothyroidism, unspecified; K21.9 Gastro-esophageal reflux disease without esophagitis; Z79.899 Other long term (current) drug therapy; Z90.49 Acquired absence of other specified parts of digestive tract; Z90.710 Acquired absence of both cervix and uterus
CPT/HCPCS: 81001; 87428; 96361; 96374; 96375; 99283; J7030; A4216; J2405; J3490

== ENCOUNTER → 2023-12-08 | Outpatient (CLI) | payer OTHER, SELFPAY ==
[2023-12-15 00:07] LABS: Lyme IgG P18 Ab Absent (.); Lyme IgG P23 Ab Absent (.); Lyme IgG P28 Ab Absent (.); Lyme IgG P30 Ab Absent (.); Lyme IgG P39 Ab Absent (.); Lyme IgG P41 Ab Absent (.); Lyme IgG P45 Ab Absent (.); Lyme IgG P58 Ab Absent (.); Lyme IgG P66 Ab Absent (.); Lyme IgG P93 Ab Absent (.); Lyme IgG WB Interpretation Negative (.); Lyme IgM P23 Ab Absent (.); Lyme IgM P39 Ab Absent (.); Lyme IgM P41 Ab Absent (.); Lyme IgM WB Interpretation Negative (.)
== END | disposition home or self-care (01) ==
LOC: BFHLAB 10:26
PROVIDERS: PCP Nurse Practitioner Family; Referring Provider Nurse Practitioner Family; Visit Provider Nurse Practitioner Family
DX: Z20.9 Contact with and (suspected) exposure to unspecified communicable disease (principal)
CPT/HCPCS: 36415; 86617

== ENCOUNTER → 2024-07-20 | Outpatient (CLI) | payer OTHER, SELFPAY | END | disposition home or self-care (01) | LOC: LABSPEC 10:15 | PROVIDERS: PCP Nurse Practitioner Family; Referring Provider Family Medicine; Visit Provider Family Medicine | DX: B34.9 Viral infection, unspecified (principal) | CPT/HCPCS: 87631 ==

== ENCOUNTER → 2024-07-21 | Outpatient (CLI) | payer OTHER, SELFPAY ==
--- NOTE | 2024-07-21 13:16 | RAD_ITS ---
HISTORY: COUGH, WHEEZING. TECHNIQUE: XR Chest 2 Views. COMPARISON: 01/03/2022. FINDINGS: CARDIOMEDIASTINAL BORDERS: Cardiac silhouette within normal limits in size. Mediastinal contour unremarkable. LUNGS: Linear right basilar opacity. PLEURA: No pleural effusion or pneumothorax seen. OSSEOUS STRUCTURES: Unremarkable. RAD/Chest PA and Lateral IMPRESSION: Mild right basilar atelectasis or inflammation. Electronically Signed: Joanie Hinojosa MD at 14:46 EST ,
== END | disposition home or self-care (01) ==
LOC: MTRAD 13:14
PROVIDERS: PCP Nurse Practitioner Family; Referring Provider Family Medicine; Visit Provider Family Medicine
DX: R05.9 Cough, unspecified (principal)
CPT/HCPCS: 71046

== ENCOUNTER → 2024-11-29 | Outpatient (CLI) | payer OTHER, SELFPAY ==
[2024-11-29 08:54] LABS: Absolute Lymphocyte Count 2.38 X10^3/uL (0.83-4.51); Absolute Neutrophil Count 3.9 X10^3/uL (2.0-7.7); Basophil# 0.03 X10^3/uL; Basophil% 0.4 % (0-1); Eosinophils% 1.4 % (0-5); Hematocrit 39.4 % (37-47); Hemoglobin 13.8 g/dL (12.0-15.0); Lymphocyte # 2.38 X10^3/ul (0.83-4.51); Lymphocyte % 33.8 % (19-41); Mean Corpuscular Hgb 30.1 pg (27.0-32.0); Mean Corpuscular Volume 85.8 fL (81-99); Mean Platelet Vol. 9.7 fl (6.2-12.0); Monocyte# 0.61 X10^3/uL; Monocyte% 8.7 % (0-10); NRBC Flagged by Analyzer 0 % (0-5); Neutrophil % 55.4 % (47-70); Platelet Count 272 K/mm3 (150-450); RBC Distribution Width CV 12.6 % (11.6-14.6); RBC Distribution Width SD 38.8 fl (35.1-43.9); Red Blood Count 4.59 M/mm3 (4.2-5.4)
[2024-11-29 09:52] LABS: ALB/GLOB Ratio 1.5 RATIO (0.9-2.4); AST(SGOT) 24 U/L (<=31); Alanine Aminotransfer ALT/SGPT 30 U/L (<=34); Albumin, Serum 4.4 g/dL (3.5-5.0); Alkaline Phosphatase 137 U/L (35-104); Anion Gap 14 (5-15); BUN 19 mg/dL (4-19); BUN/Creat Ratio 18.8 RATIO (10-20); Calcium,Total 9.2 mg/dL (7.6-11.0); Carbon Dioxide 23.9 mmol/L (21.0-32.0); Chloride 101 mmol/L (98-108); Cholesterol 242 mg/dL (<=200); Creatinine, Serum 1.03 mg/dL (0.70-1.20); EST Glomerular Filtration Rate 64 (>60); Ferritin 115 ng/mL (22-378); Glucose 113 mg/dL (70-99); High Density Lipoprotein 39 mg/dL; Low Density Lipoprotein Calc. 170 mg/dL; Potassium 3.8 mmol/L (3.3-5.1); Protein, Total 7.4 g/dL (5.9-8.4); Sodium Level 138 mmol/L (133-145); Total Bilirubin 0.64 mg/dL (0.00-1.30); Triglycerides 162 mg/dL; Very Low Density Lipoprotein 32 mg/dL (5-40); Vitamin B12 379 pg/mL (180-914); Vitamin D,25 Hydroxy 25.7 ng/mL (30-100); cholesterol:hdl ratio screen 6.14
[2024-11-29 10:14] LABS: Iron 84 ug/dL (50-170)
== END | disposition home or self-care (01) ==
LOC: LAB 06:27
PROVIDERS: PCP Nurse Practitioner Family; Referring Provider Nurse Practitioner Family; Visit Provider Nurse Practitioner Family
DX: Z00.01 Encounter for general adult medical examination with abnormal findings (principal); R53.83 Other fatigue
CPT/HCPCS: 80053; 80061; 82306; 82607; 82728; 83036; 83540; 84439; 84443; 85025

== ENCOUNTER → 2025-04-03 | Outpatient (CLI) | payer OTHER, SELFPAY | END | disposition home or self-care (01) | LOC: MTRAD 13:06 | PROVIDERS: PCP Nurse Practitioner Family; Referring Provider Chiropractor; Visit Provider Chiropractor | DX: M99.01 Segmental and somatic dysfunction of cervical region (principal) | CPT/HCPCS: 72040; 72110 ==